=== PATIENT | female | born 1995 | race American Indian/Alaskan Native ===

== ENCOUNTER 2017-12-17 04:08 | Inpatient (IN) | payer BC ==
[2017-12-17] MEDS ORDERED: DUONEB *Not for PRN Use IH ONE (04:51)
[2017-12-17] MEDS ORDERED: NACL 0.9% 1000 ML 1,000 ML IV ONE (04:52)
[2017-12-17 05:39] LABS: Basophils % (Auto) 0.7 % (0.0-1.8); Eosinophils # (Auto) 0.2 K/mm3 (0.0-0.4); Eosinophils % (Auto) 2.3 % (0.0-4.3); Hematocrit 28.5 % (30.3-42.9); Hemoglobin 9.1 gm/dl (10.1-14.3); Lymphocytes # (Auto) 1.5 K/mm3 (1.2-5.4); Lymphocytes % (Auto) 19.4 % (13.4-35.0); Mean Corpuscular HGB Conc 32 % (30-34); Mean Corpuscular Hemoglobin 26 pg (28-32); Mean Corpuscular Volume 83 fl (79-97); Monocytes # (Auto) 0.7 K/mm3 (0.0-0.8); Monocytes % (Auto) 8.5 % (0.0-7.3); Platelet Count 535 K/mm3 (140-440); Red Blood Count 3.44 M/mm3 (3.65-5.03)
[2017-12-17 05:48] LABS: BUN/Creatinine Ratio 6; Blood Urea Nitrogen 3 mg/dL (7-17); Calcium 8.9 mg/dL (8.4-10.2); Hemolysis Index 0
--- NOTE | 2017-12-17 06:14 | XRay Report ---
FINAL REPORT EXAM: XR CHEST 1V AP HISTORY: Shortness of breath TECHNIQUE: A portable upright view the chest was obtained. FINDINGS: The lung bases are not well seen because of suboptimal positioning. The heart is moderately enlarged. The lungs appear congested. There is a tracheostomy tube in good position. The bones soft tissues reveal generalized obesity. IMPRESSION: Cardiomegaly with pulmonary vascular congestion. Limited study of lung bases because of suboptimal positioning of the chest.
--- NOTE | 2017-12-17 07:33 | Emergency Department Report ---
ED Shortness of Breath HPI - General Chief Complaint: Dyspnea/Respdistress Stated Complaint: DIFFICULTY IN BREATHING Time Seen by Provider: 12/17/17 06:18 Source: patient, EMS Mode of arrival: Stretcher Limitations: Physical Limitation - History of Present Illness Initial Comments: 22-year-old female with a past medical history morbid obesity, asthma, hypertension, respiratory therapy will quietly tracheostomy placement presents to the Hospital complaining of feeling like her tracheostomy tube is clogged. Patient was recently admitted to a hospital and mobile [place] for greater than 100 days due to respiratory failure received a tracheostomy tube during this admission. Patient was discharged from the hospital in [place] today and then relocated to [place] area yesterday. Patient sat outside for the first time in months and began to develop shortness of breath and feeling like her tracheostomy tube was clogged. After suctioning in the ED patient reports feeling better. She is supposed to have certain medical supplies delivered yesterday and she does not have any tracheostomy care supplies, suction, or instructions. Patient is a chronic leg edema which is on going. Pt states she uses 28% O2 at home and positive pressure to sleep due to sleep apnea. As per discharge summary from [facility] patient was admitted September 03 until November 15 with acute on chronic hypoxic respiratory failure secondary to acute asthma exacerbation and OHS. She was admitted to inpatient rehabilitation on November 15. She was pending senior living placement however NH placement was unavailable in [place] and patient was discharged on 12/16 into the care of family member to live in [place] and to follow-up with a PCP when in [place]. No previous arrangements for medical care have been arranged prior to arriving in [place]. Discharge medications inculde Duoneb q4h prn, simethicone 80 mg tid prn, pantaoprazole 40mg qd, bisacodyl 10mg recal sup qd prn, tessalon blanc 100 mg po tid prn, tylenol, zofran miralax benadryl, and muprirocin 2% ointment prn. As per d/c summary she was given several forms regarding discharge medication including tracheostomy care - Related Data Home Medications Medication Instructions Recorded Confirmed Last Taken Acetaminophen [Tylenol] 650 mg PO Q4H PRN 12/17/17 12/17/17 Unknown Benzonatate [Tessalon Perle] 100 mg PO TID PRN 12/17/17 12/17/17 Unknown Bisacodyl [Bisac-Evac] 10 mg RC DAILY PRN 12/17/17 12/17/17 Unknown Ipratropium/Albuterol Sulfate 1 ampul IH Q4HR 12/17/17 12/17/17 Unknown [DUONEB *Not for PRN Use*] Mupirocin [Bactroban 2%] 1 applic TP TID 12/17/17 12/17/17 Unknown Ondansetron [Zofran TAB] 4 mg PO Q4HR PRN 12/17/17 12/17/17 Unknown Pantoprazole [Protonix] 40 mg PO QDAY 12/17/17 12/17/17 Unknown Polyethylene Glycol 3350 [Purelax] 17 gm PO QDAY PRN 12/17/17 12/17/17 Unknown Simethicone [Bicarsim] 80 mg PO TID PRN 12/17/17 12/17/17 Unknown diphenhydrAMINE [Benadryl CAP] 50 mg PO Q6H PRN 12/17/17 12/17/17 Unknown Allergies Allergy/AdvReac Type Severity Reaction Status Date / Time No Known Allergies Allergy Verified 12/17/17 04:39 ED Review of Systems ROS: Stated complaint: DIFFICULTY IN BREATHING Other details as noted in HPI Comment: All other systems reviewed and negative ED Past Medical Hx - Past Medical History Previous Medical History?: Yes Hx Hypertension: Yes Hx Asthma: Yes Additional medical history: Repiratory failure - Surgical History Past Surgical History?: Yes Additional Surgical History: Trach - Social History Smoking Status: Never Smoker Substance Use Type: None - Medications Home Medications: Home Medications Medication Instructions Recorded Confirmed Last Taken Type Acetaminophen [Tylenol] 650 mg PO Q4H PRN 12/17/17 12/17/17 Unknown History Benzonatate [Tessalon Perle] 100 mg PO TID PRN 12/17/17 12/17/17 Unknown History Bisacodyl [Bisac-Evac] 10 mg RC DAILY PRN 12/17/17 12/17/17 Unknown History Ipratropium/Albuterol Sulfate 1 ampul IH Q4HR 12/17/17 12/17/17 Unknown History [DUONEB *Not for PRN Use*] Mupirocin [Bactroban 2%] 1 applic TP TID 12/17/17 12/17/17 Unknown History Ondansetron [Zofran TAB] 4 mg PO Q4HR PRN 12/17/17 12/17/17 Unknown History Pantoprazole [Protonix] 40 mg PO QDAY 12/17/17 12/17/17 Unknown History Polyethylene Glycol 3350 [Purelax] 17 gm PO QDAY PRN 12/17/17 12/17/17 Unknown History Simethicone [Bicarsim] 80 mg PO TID PRN 12/17/17 12/17/17 Unknown History diphenhydrAMINE [Benadryl CAP] 50 mg PO Q6H PRN 12/17/17 12/17/17 Unknown History ED Physical Exam - General Limitations: Physical Limitation - Other Other exam information: General: No limitations, patient is alert in no acute distress Head exam: Atraumatic, normocephalic Eyes exam: Normal appearance, pupils equal reactive to light, extraocular movements intact ENT: Moist mucous membrane, normal oropharynx Neck exam: Tracheostomy tube with white secretions Respiratory exam: Clear to auscultation bilateral, no wheezes, rales, crackles Cardiovascular: Mild tachycardia regular rhythm Abdomen: Soft, nondistended, and nontender, with normal bowel sounds, no rebound, or guarding Extremity: b/l leg edema Back: Normal Inspection Neurologic: Alert, oriented x3, cranial nerves intact, no motor or sensory deficit Psychiatric: normal affect, normal mood Skin: Mild skin breakdown along the right anterior neck alongside tracheostomy ED Course Vital Signs 12/17/17 12/17/17 12/17/17 04:12 04:16 04:30 Temperature Pulse Rate 112 H Pulse Rate [ Bilateral Throughout] Respiratory 21 Rate Respiratory Rate [Bilateral Throughout] Blood Pressure 131/82 153/100 Blood Pressure [Right] O2 Sat by Pulse 99 98 96 Oximetry O2 Sat by Pulse Oximetry [ Assessment] 12/17/17 12/17/17 12/17/17 04:39 04:45 04:47 Temperature 99.6 F 99.1 F Pulse Rate 109 H 105 H 109 H Pulse Rate [ Bilateral Throughout] Respiratory 21 25 H 21 Rate Respiratory Rate [Bilateral Throughout] Blood Pressure 131/82 131/82 Blood Pressure 131/82 [Right] O2 Sat by Pulse 100 99 100 Oximetry O2 Sat by Pulse Oximetry [ Assessment] 12/17/17 12/17/17 12/17/17 04:55 05:00 05:10 Temperature Pulse Rate 102 H Pulse Rate [ 89 92 H Bilateral Throughout] Respiratory 29 H Rate Respiratory 24 25 H Rate [Bilateral Throughout] Blood Pressure 156/109 Blood Pressure [Right] O2 Sat by Pulse 84 Oximetry O2 Sat by Pulse Oximetry [ Assessment] 12/17/17 12/17/17 12/17/17 05:15 05:30 05:45 Temperature Pulse Rate 98 H 104 H 107 H Pulse Rate [ Bilateral Throughout] Respiratory 19 19 26 H Rate Respiratory Rate [Bilateral Throughout] Blood Pressure 156/109 145/87 145/87 Blood Pressure [Right] O2 Sat by Pulse 99 97 99 Oximetry O2 Sat by Pulse Oximetry [ Assessment] 12/17/17 12/17/17 12/17/17 06:01 06:15 06:31 Temperature Pulse Rate Pulse Rate [ Bilateral Throughout] Respiratory Rate Respiratory Rate [Bilateral Throughout] Blood Pressure 145/87 115/67 141/81 Blood Pressure [Right] O2 Sat by Pulse 93 87 Oximetry O2 Sat by Pulse Oximetry [ Assessment] 12/17/17 12/17/17 12/17/17 06:45 07:00 07:15 Temperature Pulse Rate Pulse Rate [ Bilateral Throughout] Respiratory Rate Respiratory Rate [Bilateral Throughout] Blood Pressure 141/81 134/83 134/83 Blood Pressure [Right] O2 Sat by Pulse 94 97 95 Oximetry O2 Sat by Pulse Oximetry [ Assessment] 12/17/17 12/17/17 12/17/17 07:30 08:00 08:31 Temperature Pulse Rate Pulse Rate [ Bilateral Throughout] Respiratory Rate Respiratory Rate [Bilateral Throughout] Blood Pressure 148/74 131/73 135/59 Blood Pressure [Right] O2 Sat by Pulse 91 89 92 Oximetry O2 Sat by Pulse Oximetry [ Assessment] 12/17/17 12/17/17 12/17/17 09:00 09:30 10:01 Temperature Pulse Rate Pulse Rate [ Bilateral Throughout] Respiratory Rate Respiratory Rate [Bilateral Throughout] Blood Pressure 129/50 138/57 123/67 Blood Pressure [Right] O2 Sat by Pulse 92 94 97 Oximetry O2 Sat by Pulse Oximetry [ Assessment] 12/17/17 12/17/17 12/17/17 10:30 11:01 12:27 Temperature Pulse Rate Pulse Rate [ Bilateral Throughout] Respiratory Rate Respiratory Rate [Bilateral Throughout] Blood Pressure 139/72 133/67 Blood Pressure [Right] O2 Sat by Pulse 93 100 Oximetry O2 Sat by Pulse 98 Oximetry [ Assessment] 12/17/17 12:30 Temperature Pulse Rate Pulse Rate [ Bilateral Throughout] Respiratory Rate Respiratory Rate [Bilateral Throughout] Blood Pressure Blood Pressure [Right] O2 Sat by Pulse 98 Oximetry O2 Sat by Pulse Oximetry [ Assessment] - Reevaluation(s) Reevaluation #1: 12/17/17 08:30 am Case management consulted Reevaluation #2: 12/17/17 13:33 Throughout the day case management has been attempting to reach case management at the [facility] as well as arrange for outpatient delivery of patient's tracheostomy supplies today. We are unable to make arrangements at this time there for patient not being safe for discharge until such arrangements can be made. During ED stay patient has required repeated tracheostomy suctioning. ED Medical Decision Making - Lab Data Result diagrams: 12/17/17 05:02 12/17/17 05:02 Lab Results 12/17/17 12/17/17 12/17/17 Range/Units 05:02 05:02 05:02 WBC 7.6 (4.5-11.0) K/mm3 RBC 3.44 L (3.65-5.03) M/mm3 Hgb 9.1 L (10.1-14.3) gm/dl Hct 28.5 L (30.3-42.9) % MCV 83 (79-97) fl MCH 26 L (28-32) pg MCHC 32 (30-34) % RDW 19.0 H (13.2-15.2) % Plt Count 535 H (140-440) K/mm3 Lymph % (Auto) 19.4 (13.4-35.0) % [place] % (Auto) 8.5 H (0.0-7.3) % Eos % (Auto) 2.3 (0.0-4.3) % Baso % (Auto) 0.7 (0.0-1.8) % Lymph # 1.5 (1.2-5.4) K/mm3 [place] # 0.7 (0.0-0.8) K/mm3 Eos # 0.2 (0.0-0.4) K/mm3 Baso # 0.0 (0.0-0.1) K/mm3 Seg Neutrophils % 69.1 (40.0-70.0) % Seg Neutrophils # 5.3 (1.8-7.7) K/mm3 Sodium 143 (137-145) mmol/L Potassium 3.8 (3.6-5.0) mmol/L Chloride 98.7 (98-107) mmol/L Carbon Dioxide 32 H (22-30) mmol/L Anion Gap 16 mmol/L BUN 3 L (7-17) mg/dL Creatinine 0.5 L (0.7-1.2) mg/dL Estimated GFR > 60 ml/min BUN/Creatinine Ratio 6 % Glucose 119 H (65-100) mg/dL Calcium 8.9 (8.4-10.2) mg/dL NT-Pro-B Natriuret Pep (0-450) pg/mL HCG, Qual Negative (Negative) 12/17/17 Range/Units 05:02 WBC (4.5-11.0) K/mm3 RBC (3.65-5.03) M/mm3 Hgb (10.1-14.3) gm/dl Hct (30.3-42.9) % MCV (79-97) fl MCH (28-32) pg MCHC (30-34) % RDW (13.2-15.2) % Plt Count (140-440) K/mm3 Lymph % (Auto) (13.4-35.0) % [place] % (Auto) (0.0-7.3) % Eos % (Auto) (0.0-4.3) % Baso % (Auto) (0.0-1.8) % Lymph # (1.2-5.4) K/mm3 [place] # (0.0-0.8) K/mm3 Eos # (0.0-0.4) K/mm3 Baso # (0.0-0.1) K/mm3 Seg Neutrophils % (40.0-70.0) % Seg Neutrophils # (1.8-7.7) K/mm3 Sodium (137-145) mmol/L Potassium (3.6-5.0) mmol/L Chloride (98-107) mmol/L Carbon Dioxide (22-30) mmol/L Anion Gap mmol/L BUN (7-17) mg/dL Creatinine (0.7-1.2) mg/dL Estimated GFR ml/min BUN/Creatinine Ratio % Glucose (65-100) mg/dL Calcium (8.4-10.2) mg/dL NT-Pro-B Natriuret Pep 163.1 (0-450) pg/mL HCG, Qual (Negative) - EKG Data -: EKG Interpreted by Me EKG shows normal: sinus rhythm Rate: tachycardia - Differential Diagnosis pneumonia, trach infection, trach clogged Critical Care Time: No Critical care attestation.: If time is entered above; I have spent that time in minutes in the direct care of this critically ill patient, excluding procedure time. ED Disposition Clinical Impression: Tracheostomy complication, Oxygen dependent, Morbidly obese, Anemia, Asthma Disposition: OP ADMIT IP TO THIS HOSP Is pt being admited?: Yes Condition: Stable Time of Disposition: 13:31
[2017-12-17] MEDS ORDERED: NACL 0.9% 1000 ML 1,000 ML ONE (13:46)
[2017-12-17] MEDS ORDERED: MORPHINE IV PRN (19:01)
[2017-12-17] MEDS ORDERED: REGLAN IV PRN (19:01)
[2017-12-17] MEDS ORDERED: ZOFRAN IV PRN ×2 (19:01→19:04)
[2017-12-17] MEDS ORDERED: PHENERGAN PR PRN (19:01)
[2017-12-17] MEDS ORDERED: PERCOCET 5/325 PO PRN (19:01)
[2017-12-17] MEDS ORDERED: SODIUM CHLORIDE FLUSH SYRINGE 10 ML IV PRN (19:01)
[2017-12-17] MEDS ORDERED: TYLENOL PO PRN ×2 (19:01→19:04)
[2017-12-17] MEDS ORDERED: DUONEB *Not for PRN Use IH (19:04)
[2017-12-17] MEDS ORDERED: PROVENTIL IH PRN (19:19)
--- NOTE | 2017-12-17 19:40 | History and Physical Report ---
History of Present Illness Date of examination: 12/17/17 Date of admission: 12/17/17 15:25 Medications and Allergies Allergies Allergy/AdvReac Type Severity Reaction Status Date / Time No Known Allergies Allergy Verified 12/17/17 04:39 Home Medications Medication Instructions Recorded Confirmed Last Taken Type Acetaminophen [Tylenol] 650 mg PO Q4H PRN 12/17/17 12/17/17 Unknown History Benzonatate [Tessalon Perle] 100 mg PO TID PRN 12/17/17 12/17/17 Unknown History Bisacodyl [Bisac-Evac] 10 mg RC DAILY PRN 12/17/17 12/17/17 Unknown History Ipratropium/Albuterol Sulfate 1 ampul IH Q4HR 12/17/17 12/17/17 Unknown History [DUONEB *Not for PRN Use*] Mupirocin [Bactroban 2%] 1 applic TP TID 12/17/17 12/17/17 Unknown History Ondansetron [Zofran TAB] 4 mg PO Q4HR PRN 12/17/17 12/17/17 Unknown History Pantoprazole [Protonix] 40 mg PO QDAY 12/17/17 12/17/17 Unknown History Polyethylene Glycol 3350 [Purelax] 17 gm PO QDAY PRN 12/17/17 12/17/17 Unknown History Simethicone [Bicarsim] 80 mg PO TID PRN 12/17/17 12/17/17 Unknown History diphenhydrAMINE [Benadryl CAP] 50 mg PO Q6H PRN 12/17/17 12/17/17 Unknown History Exam - Constitutional Vitals: Temp Pulse Resp BP Pulse Ox 98.0 F 107 H 26 H 137/77 91 12/17/17 16:02 12/17/17 05:45 12/17/17 05:45 12/17/17 14:01 12/17/17 14:01 Results - Labs CBC & Chem 7: 12/17/17 05:02 12/17/17 05:02 Labs: Laboratory Last Values WBC 7.6 K/mm3 (4.5-11.0) 12/17/17 05:02 RBC 3.44 M/mm3 (3.65-5.03) L 12/17/17 05:02 Hgb 9.1 gm/dl (10.1-14.3) L 12/17/17 05:02 Hct 28.5 % (30.3-42.9) L 12/17/17 05:02 MCV 83 fl (79-97) 12/17/17 05:02 MCH 26 pg (28-32) L 12/17/17 05:02 MCHC 32 % (30-34) 12/17/17 05:02 RDW 19.0 % (13.2-15.2) H 12/17/17 05:02 Plt Count 535 K/mm3 (140-440) H 12/17/17 05:02 Lymph % (Auto) 19.4 % (13.4-35.0) 12/17/17 05:02 [place] % (Auto) 8.5 % (0.0-7.3) H 12/17/17 05:02 Eos % (Auto) 2.3 % (0.0-4.3) 12/17/17 05:02 Baso % (Auto) 0.7 % (0.0-1.8) 12/17/17 05:02 Lymph # 1.5 K/mm3 (1.2-5.4) 12/17/17 05:02 [place] # 0.7 K/mm3 (0.0-0.8) 12/17/17 05:02 Eos # 0.2 K/mm3 (0.0-0.4) 12/17/17 05:02 Baso # 0.0 K/mm3 (0.0-0.1) 12/17/17 05:02 Seg Neutrophils % 69.1 % (40.0-70.0) 12/17/17 05:02 Seg Neutrophils # 5.3 K/mm3 (1.8-7.7) 12/17/17 05:02 Sodium 143 mmol/L (137-145) 12/17/17 05:02 Potassium 3.8 mmol/L (3.6-5.0) 12/17/17 05:02 Chloride 98.7 mmol/L (98-107) 12/17/17 05:02 Carbon Dioxide 32 mmol/L (22-30) H 12/17/17 05:02 Anion Gap 16 mmol/L 12/17/17 05:02 BUN 3 mg/dL (7-17) L 12/17/17 05:02 Creatinine 0.5 mg/dL (0.7-1.2) L 12/17/17 05:02 Estimated GFR > 60 ml/min 12/17/17 05:02 BUN/Creatinine Ratio 6 % 12/17/17 05:02 Glucose 119 mg/dL (65-100) H 12/17/17 05:02 Calcium 8.9 mg/dL (8.4-10.2) 12/17/17 05:02 NT-Pro-B Natriuret Pep 163.1 pg/mL (0-450) 12/17/17 05:02 HCG, Qual Negative (Negative) 12/17/17 05:02
[2017-12-17] MEDS: DUONEB *Not for PRN Use IH SCH (19:51)
[2017-12-17] MEDS: LEVAQUIN 750MG/150ML 750 MG/150 ML BAG IV SCH (21:09)
[2017-12-17] MEDS: SODIUM CHLORIDE FLUSH SYRINGE 10 ML IV SCH (22:45)
[2017-12-17] MEDS: PEPCID PO SCH (22:45)
--- NOTE | 2017-12-18 01:16 | Event Note ---
Date: 12/17/17 See dictated H/p in the reports Acute Resp failure NATACHA Pickwickian syndrome S/p Trach Morbid obesity Recent discharge from [facility] 24 hours ago
--- NOTE | 2017-12-18 02:03 | History and Physical Report ---
CHIEF COMPLAINT: Respiratory distress and shortness of breath for 1 day. HISTORY OF PRESENT ILLNESS: The patient is a 22-year-old female with morbid obesity, hypoventilation syndrome secondary to Pickwickian, recent trach and prolonged stay in the hospital in [place], was discharged yesterday. The patient was supposed to have a hospital bed and home oxygen and nebulizer treatments at home. The patient's hospital bed and all did not arrive at home. The patient became more short of breath and started having tracheal secretions, which could not be suctioned. No fever, no chills. Increasing secretions in the tracheal region causing tracheal obstruction and hypoxia. No fever. The patient was admitted on 09/03/2017 in [facility] until 11/15/2017 with acute on chronic hypoxic failure. Then, again, she was admitted to inpatient rehabilitation on 11/15/2017. She was supposed to be discharged home with a hospital bed at home and home oxygen and nebulizer treatments, which have not materialized. The patient continues to be in respiratory distress. PAST MEDICAL HISTORY: Significant for hypertension, hypoventilation syndrome, morbid obesity, chronic respiratory failure, on home oxygen. PAST SURGICAL HISTORY: Trach. FAMILY HISTORY: Hypertension. SOCIAL HISTORY: Does not smoke. No alcohol. Increased calorie intake. REVIEW OF SYSTEMS: Significant for tracheal secretions with shortness of breath, cough productive of mucoid sputum. No fever. No chills. A 14-point review of systems done. The patient is morbidly obese. PHYSICAL EXAMINATION: GENERAL: Young female lying in bed, morbidly obese, should be weighing around 550-600 pounds. VITAL SIGNS: Blood pressure is 149/99 and 137/77, temperature is 99.4, pulse is 88, respirations are 18, initial sats were low around 84%. HEENT: Unremarkable. Pupils equal and reactive. NECK: Supple, no lymphadenopathy, no thyromegaly. LUNGS: Scattered rhonchi bilaterally. CARDIOVASCULAR: S1, S2 heard. No gallop, no murmur, no rub. Apical impulse in the left fifth intercostal space and midclavicular line. ABDOMEN: Soft and benign. No hepatosplenomegaly. No guarding, no rigidity. Hernial orifices are normal. EXTREMITIES: No pedal edema. CENTRAL NERVOUS SYSTEM: Alert and oriented x 4. LABORATORY DATA: Significant for white count of 7600, H and H is 9.1 and 28.5, platelet count is 535,000. Electrolytes are normal. BUN and creatinine is 3 and 0.5, glucose is 119. A1c is 5.3. RADIOLOGICAL DATA: Chest x-ray shows cardiomegaly with pulmonary vascular congestion. Limited history of lung bases because of suboptimal positioning of the chest. ASSESSMENT AND PLAN: 1. Acute respiratory failure secondary to tracheal secretions and causing upper airway obstruction and hypoxia. The patient needs frequent tracheal suctioning. Also, IV antibiotics initiated. 2. Hypoventilation syndrome. The patient to get DuoNeb and respiratory support. IV Solu-Medrol for the time being. 3. Morbid obesity. The patient counseled. 4. Anemia, chronic, secondary to possible iron deficiency. Iron levels ordered. Poor IV access, port placement was ordered. Vascular Surgery consulted. Discussed with Vascular Surgery, ____. 4. Deep venous thrombosis prophylaxis, Lovenox 40 mg subcutaneous daily. 5. Discharge planning issues. Case management to arrange for a hospital bed and a nebulizer machine and oxygen. The patient already has oxygen at home. Treat symptomatically for now. In summary, the patient has acute respiratory failure, hypoventilation syndrome and morbid obesity. JOB# [id number] CORBIN/MARCY
[2017-12-18 02:44] LABS: % Iron Saturation 5.13 %
[2017-12-18] MEDS: DUONEB *Not for PRN Use IH SCH ×4 (08:33→20:28)
--- NOTE | 2017-12-18 08:47 | Progress Note ---
Assessment and Plan Assessment and plan: 22F w morbid obesity, obesity hypoventilation; recent trach, long hospital stay in [place] x3 months for acute hypoxic respiratory failure, was dc yesterday but his supplies names.y, hospital bed, home o2 and nebulizer were not delivered ; he pw sob, increased tracheal secretion which were difficult to suction; CXR image reviewed; pulm congestion PMH; htn, obesity hypoventilation, chronic hypoxic respiratory failure Acute respiratory failure with hypoxia; pulmonary congestion;give oxygen supplement CHF? obtain echo, start diuresis Tracheal secreations; concern for infection, culture tracheal aspirate, hold off on abx for now Obesity hypoventilation; pulm consult, will need NIV prior to dc Morbid obesity; lifestyle modification Anemia of chronic disease and iron deficiency; stable CM to obtain home services and equipment for patient, NIV, oxygen, hospital bed and nebulizer History Interval history: Review of systems Constitutional: No fevers, no malaise, no joint pains CVS: No chest pain, no orthopnea, no dyspnea on exertion, no pedal edema GI: No abdominal pain, no diarrhea, no vomiting, no constipation Respiratory: No shortness of breath, no wheezing, no coughing Hospitalist Physical - Physical exam Narrative exam: General.: Appears well, no distress, nontoxic HEENT: Moist mucous membranes, extraocular muscles intact, no lymphadenopathy Neck: supple Cardiac: S1-S2 heard Lungs: clear to auscultation bilaterally Abdomen: soft , nontender, nondistended, bowel sounds positive Extremities: no edema clubbing or cyanosis Skin: no rash or lesions Neurologic: no gross focal deficits Psych: appropriate behavior, appropriate mood, corporative, judgment intact - Constitutional Vitals: Temp Pulse Resp BP Pulse Ox 99.4 F 98 H 18 149/99 98 12/17/17 23:12 12/18/17 08:34 12/18/17 08:34 12/17/17 23:12 12/18/17 08:34 Results - Labs CBC & Chem 7: 12/17/17 05:02 12/17/17 05:02 Labs: Laboratory Last Values WBC 7.6 K/mm3 (4.5-11.0) 12/17/17 05:02 RBC 3.44 M/mm3 (3.65-5.03) L 12/17/17 05:02 Hgb 9.1 gm/dl (10.1-14.3) L 12/17/17 05:02 Hct 28.5 % (30.3-42.9) L 12/17/17 05:02 MCV 83 fl (79-97) 12/17/17 05:02 MCH 26 pg (28-32) L 12/17/17 05:02 MCHC 32 % (30-34) 12/17/17 05:02 RDW 19.0 % (13.2-15.2) H 12/17/17 05:02 Plt Count 535 K/mm3 (140-440) H 12/17/17 05:02 Lymph % (Auto) 19.4 % (13.4-35.0) 12/17/17 05:02 [place] % (Auto) 8.5 % (0.0-7.3) H 12/17/17 05:02 Eos % (Auto) 2.3 % (0.0-4.3) 12/17/17 05:02 Baso % (Auto) 0.7 % (0.0-1.8) 12/17/17 05:02 Lymph # 1.5 K/mm3 (1.2-5.4) 12/17/17 05:02 [place] # 0.7 K/mm3 (0.0-0.8) 12/17/17 05:02 Eos # 0.2 K/mm3 (0.0-0.4) 12/17/17 05:02 Baso # 0.0 K/mm3 (0.0-0.1) 12/17/17 05:02 Seg Neutrophils % 69.1 % (40.0-70.0) 12/17/17 05:02 Seg Neutrophils # 5.3 K/mm3 (1.8-7.7) 12/17/17 05:02 Sodium 143 mmol/L (137-145) 12/17/17 05:02 Potassium 3.8 mmol/L (3.6-5.0) 12/17/17 05:02 Chloride 98.7 mmol/L (98-107) 12/17/17 05:02 Carbon Dioxide 32 mmol/L (22-30) H 12/17/17 05:02 Anion Gap 16 mmol/L 12/17/17 05:02 BUN 3 mg/dL (7-17) L 12/17/17 05:02 Creatinine 0.5 mg/dL (0.7-1.2) L 12/17/17 05:02 Estimated GFR > 60 ml/min 12/17/17 05:02 BUN/Creatinine Ratio 6 % 12/17/17 05:02 Glucose 119 mg/dL (65-100) H 12/17/17 05:02 Hemoglobin A1c 5.3 % (4-6) 12/17/17 21:47 Calcium 8.9 mg/dL (8.4-10.2) 12/17/17 05:02 Iron 18 ug/dL (37-170) L 12/18/17 01:48 TIBC 351 mcg/dL (250-450) 12/18/17 01:48 % Saturation 5.13 % 12/18/17 01:48 Transferrin 306 mg/dl (192-382) 12/18/17 01:48 NT-Pro-B Natriuret Pep 163.1 pg/mL (0-450) 12/17/17 05:02 HCG, Qual Negative (Negative) 12/17/17 05:02
[2017-12-18 09:08] LABS: Mean Corpuscular HGB Conc 30 % (30-34); Mean Corpuscular Volume 83 fl (79-97); Platelet Count 581 K/mm3 (140-440); Red Cell Distribution Width 18.9 % (13.2-15.2)
[2017-12-18 09:13] LABS: Hematocrit 31.6 % (30.3-42.9); Hemoglobin 9.5 gm/dl (10.1-14.3); Mean Corpuscular Hemoglobin 25 pg (28-32)
[2017-12-18 10:10] LABS: Basophils % (Manual) 0 % (0.0-1.8); Eosinophils % (Manual) 0 % (0.0-4.3); Total Cells Counted 100
[2017-12-18 10:11] LABS: Anisocytosis 1+; Burr Cells 1+; Ovalocytes 1+; Platelet Estimate Appears Increased; Stomatocytes 1+; Tear Drop Cells Rare
[2017-12-18] MEDS: LEVAQUIN 750MG/150ML 750 MG/150 ML BAG IV SCH (10:27)
[2017-12-18] MEDS: PEPCID PO SCH ×2 (10:27→22:40)
[2017-12-18] MEDS: SODIUM CHLORIDE FLUSH SYRINGE 10 ML IV SCH (10:30)
--- NOTE | 2017-12-18 11:22 | Consultation ---
History of Present Illness - Reason for Consult Consult date: 12/18/17 port placement - History of Present Illness Patient with a history of morbid obesity and respiratory distress to was recently released from hospital in [place]. Her home medical equipment did not materialize and the patient presented here in respiratory distress. She currently has a tracheostomy tube in place. She does have an IV Past History Past Surgical History: Other (trach) Social history: no significant social history, lives with family Family history: no significant family history Medications and Allergies Allergies Allergy/AdvReac Type Severity Reaction Status Date / Time No Known Allergies Allergy Verified 12/17/17 04:39 Home Medications Medication Instructions Recorded Confirmed Last Taken Type Acetaminophen [Tylenol] 650 mg PO Q4H PRN 12/17/17 12/17/17 Unknown History Benzonatate [Tessalon Perle] 100 mg PO TID PRN 12/17/17 12/17/17 Unknown History Bisacodyl [Bisac-Evac] 10 mg RC DAILY PRN 12/17/17 12/17/17 Unknown History Ipratropium/Albuterol Sulfate 1 ampul IH Q4HR 12/17/17 12/17/17 Unknown History [DUONEB *Not for PRN Use*] Mupirocin [Bactroban 2%] 1 applic TP TID 12/17/17 12/17/17 Unknown History Ondansetron [Zofran TAB] 4 mg PO Q4HR PRN 12/17/17 12/17/17 Unknown History Pantoprazole [Protonix] 40 mg PO QDAY 12/17/17 12/17/17 Unknown History Polyethylene Glycol 3350 [Purelax] 17 gm PO QDAY PRN 12/17/17 12/17/17 Unknown History Simethicone [Bicarsim] 80 mg PO TID PRN 12/17/17 12/17/17 Unknown History diphenhydrAMINE [Benadryl CAP] 50 mg PO Q6H PRN 12/17/17 12/17/17 Unknown History Active Meds: Active Medications Acetaminophen (Tylenol) 650 mg PO Q4H PRN PRN Reason: Pain MILD(1-3)/Fever >100.5/SIERRA Albuterol (Proventil) 2.5 mg IH Q4HRT PRN PRN Reason: Shortness Of Breath Albuterol/Ipratropium (Duoneb *Not For Prn Use*) 1 ampul IH QIDRT [facility] Last Admin: 12/18/17 08:33 Dose: 1 ampul Famotidine (Pepcid) 20 mg PO BID [facility] Last Admin: 12/18/17 10:27 Dose: 20 mg Furosemide (Lasix) 40 mg IV Q12HR [facility] Influenza Virus Vaccine Quadrival (Fluarix Quad [id number](36 Mos+) 0.5 ml IM .ONCE ONE Stop: 12/18/17 12:01 Levofloxacin (Levaquin) 750 mg PO DAILY [facility] Stop: 12/26/17 12:59 Methylprednisolone Sodium Succinate (Solu-Medrol) 40 mg IV Q8HR [facility] Last Admin: 12/18/17 06:02 Dose: 40 mg Metoclopramide HCl (Reglan) 10 mg IV Q6H PRN PRN Reason: Nausea And Vomiting Morphine Sulfate (Morphine) 2 mg IV Q4H PRN PRN Reason: Pain, Moderate (4-6) Last Admin: 12/17/17 23:36 Dose: 2 mg Ondansetron HCl (Zofran) 4 mg IV Q8H PRN PRN Reason: Nausea And Vomiting Ondansetron HCl (Zofran) 4 mg IV Q3H PRN PRN Reason: Nausea And Vomiting Oxycodone/Acetaminophen (Percocet 5/325) 1 tab PO Q6H PRN PRN Reason: Pain, Moderate (4-6) Pneumococcal Polyvalent Vaccine (Pneumovax 23) 0.5 ml IM .ONCE ONE Stop: 12/18/17 12:01 Promethazine HCl (Phenergan) 25 mg OK Q6H PRN PRN Reason: N/V IF NPO AND NO IV ACCESS Sodium Chloride (Sodium Chloride Flush Syringe 10 Ml) 10 ml IV BID [facility] Last Admin: 12/18/17 10:30 Dose: 10 ml Sodium Chloride (Sodium Chloride Flush Syringe 10 Ml) 10 ml IV PRN PRN PRN Reason: LINE FLUSH Review of Systems All systems: negative Exam - Constitutional Vitals: Temp Pulse Resp BP Pulse Ox 98.1 F 98 H 18 161/62 98 12/18/17 07:34 12/18/17 08:34 12/18/17 08:34 12/18/17 07:34 12/18/17 08:34 General appearance: Present: obese - EENT Eyes: Present: PERRL ENT: hearing intact - Neck Neck: Present: supple, normal ROM - Respiratory Respiratory effort: normal - Extremities Extremity abnormal: edema - Abdominal General gastrointestinal: Present: deferred Female genitourinary: Present: deferred - Rectal Rectal Exam: deferred - Psychiatric Psychiatric: appropriate mood/affect, cooperative Results - Labs CBC & Chem 7: 12/18/17 07:15 12/17/17 05:02 Labs: Abnormal lab results 12/18/17 12/18/17 Range/Units 01:48 07:15 Hgb 9.5 L (10.1-14.3) gm/dl MCH 25 L (28-32) pg RDW 18.9 H (13.2-15.2) % Plt Count 581 H (140-440) K/mm3 Seg Neuts % (Manual) 96.0 H (40.0-70.0) % Lymphocytes % (Manual) 3.0 L (13.4-35.0) % Seg Neutrophils # Man 8.6 H (1.8-7.7) K/mm3 Lymphocytes # (Manual) 0.3 L (1.2-5.4) K/mm3 Iron 18 L (37-170) ug/dL Assessment and Plan The patient is morbidly obese. No acute need for ports time however, following a lengthy discussion with the patient, to somewhat hesitant as well. If the patient long-term IV access we can review this issue. Additionally, the patient is to discuss with Dr. Holley gastric mass options.
[2017-12-18] MEDS ORDERED: PNEUMOVAX 23 IM ONE (12:00)
[2017-12-18] MEDS ORDERED: Fluarix Quad 2017-2018(36 MOS+ IM ONE (12:00)
[2017-12-18 12:12] LABS: Alanine Aminotransferase 9 units/L (7-56); Albumin 3.7 g/dL (3.9-5); BUN/Creatinine Ratio 6; Blood Urea Nitrogen 3 mg/dL (7-17); Calcium 9.3 mg/dL (8.4-10.2); Hemolysis Index 0
[2017-12-18] MEDS: LASIX IV SCH ×2 (18:08→22:00)
[2017-12-19] MEDS: SODIUM CHLORIDE FLUSH SYRINGE 10 ML IV SCH ×2 (01:02→11:27)
[2017-12-19] MEDS: LASIX IV SCH ×2 (06:40→11:16)
[2017-12-19] MEDS: DUONEB *Not for PRN Use IH SCH ×4 (08:32→22:02)
[2017-12-19] MEDS: PEPCID PO SCH (11:16)
[2017-12-19] MEDS: LEVAQUIN PO SCH (11:16)
--- NOTE | 2017-12-19 13:03 | Consultation ---
History of Present Illness Consult date: 12/19/17 Consult reason: congestive heart failure History of present illness: This is a 22 year old female with a history of asthma, morbid obesity, respiratory failure whom is status post tracheostomy. She presents to this hospital complaints of shortness of breath, feeling like her tracheostomy tube is clogged. Patient reports she was just discharged after an extended hospitalization in [place], to live with family here in [place]. Patient reports she was sent to [place] without supplies to suction her tracheostomy and developed shortness of breath shortly after arriving. A cardiac consultation was requested for CHF. Chest x-ray is negative. Patient denies chest pain. She denies palpitations. Patient denies prior cardiac workup. 12 lead ECG is mild sinus tachycardia, rate 114. Past History Past Surgical History: Other (trach) Social history: no significant social history, lives with family Family history: no significant family history Medications and Allergies Allergies Allergy/AdvReac Type Severity Reaction Status Date / Time No Known Allergies Allergy Verified 12/17/17 04:39 Home Medications Medication Instructions Recorded Confirmed Last Taken Type Acetaminophen [Tylenol] 650 mg PO Q4H PRN 12/17/17 12/17/17 Unknown History Benzonatate [Tessalon Perle] 100 mg PO TID PRN 12/17/17 12/17/17 Unknown History Bisacodyl [Bisac-Evac] 10 mg RC DAILY PRN 12/17/17 12/17/17 Unknown History Ipratropium/Albuterol Sulfate 1 ampul IH Q4HR 12/17/17 12/17/17 Unknown History [DUONEB *Not for PRN Use*] Mupirocin [Bactroban 2%] 1 applic TP TID 12/17/17 12/17/17 Unknown History Ondansetron [Zofran TAB] 4 mg PO Q4HR PRN 12/17/17 12/17/17 Unknown History Pantoprazole [Protonix] 40 mg PO QDAY 12/17/17 12/17/17 Unknown History Polyethylene Glycol 3350 [Purelax] 17 gm PO QDAY PRN 12/17/17 12/17/17 Unknown History Simethicone [Bicarsim] 80 mg PO TID PRN 12/17/17 12/17/17 Unknown History diphenhydrAMINE [Benadryl CAP] 50 mg PO Q6H PRN 12/17/17 12/17/17 Unknown History Active Meds: Active Medications Acetaminophen (Tylenol) 650 mg PO Q4H PRN PRN Reason: Pain MILD(1-3)/Fever >100.5/SIERRA Albuterol (Proventil) 2.5 mg IH Q4HRT PRN PRN Reason: Shortness Of Breath Albuterol/Ipratropium (Duoneb *Not For Prn Use*) 1 ampul IH QIDRT [facility] Last Admin: 12/19/17 08:32 Dose: 1 ampul Famotidine (Pepcid) 20 mg PO BID [facility] Last Admin: 12/19/17 11:16 Dose: 20 mg Furosemide (Lasix) 40 mg IV Q12HR [facility] Last Admin: 12/19/17 11:16 Dose: 40 mg Levofloxacin (Levaquin) 750 mg PO DAILY [facility] Stop: 12/26/17 12:59 Last Admin: 12/19/17 11:16 Dose: 750 mg Methylprednisolone Sodium Succinate (Solu-Medrol) 40 mg IV Q8HR [facility] Last Admin: 12/19/17 06:40 Dose: 40 mg Metoclopramide HCl (Reglan) 10 mg IV Q6H PRN PRN Reason: Nausea And Vomiting Morphine Sulfate (Morphine) 2 mg IV Q4H PRN PRN Reason: Pain, Moderate (4-6) Last Admin: 12/17/17 23:36 Dose: 2 mg Ondansetron HCl (Zofran) 4 mg IV Q3H PRN PRN Reason: Nausea And Vomiting Oxycodone/Acetaminophen (Percocet 5/325) 1 tab PO Q6H PRN PRN Reason: Pain, Moderate (4-6) Promethazine HCl (Phenergan) 25 mg RI Q6H PRN PRN Reason: N/V IF NPO AND NO IV ACCESS Sodium Chloride (Sodium Chloride Flush Syringe 10 Ml) 10 ml IV BID [facility] Last Admin: 12/19/17 11:27 Dose: 10 ml Sodium Chloride (Sodium Chloride Flush Syringe 10 Ml) 10 ml IV PRN PRN PRN Reason: LINE FLUSH Physical Examination Vital Signs Pulse Ox 99 12/17/17 04:12 Results 12/18/17 07:15 12/18/17 07:15 Assessment and Plan Respiratory failure status post tracheostomy Morbid obesity Hx of Asthma
--- NOTE | 2017-12-19 16:13 | Progress Note ---
Hospitalist Physical - Constitutional Vitals: Temp Pulse Resp BP Pulse Ox 98.2 F 83 20 137/79 98 12/19/17 08:35 12/19/17 08:35 12/19/17 08:35 12/19/17 08:35 12/19/17 08:35 General appearance: Present: obese Results - Labs CBC & Chem 7: 12/18/17 07:15 12/18/17 07:15 Labs: Laboratory Last Values WBC 9.0 K/mm3 (4.5-11.0) 12/18/17 07:15 RBC 3.80 M/mm3 (3.65-5.03) 12/18/17 07:15 Hgb 9.5 gm/dl (10.1-14.3) L 12/18/17 07:15 Hct 31.6 % (30.3-42.9) 12/18/17 07:15 MCV 83 fl (79-97) 12/18/17 07:15 MCH 25 pg (28-32) L 12/18/17 07:15 MCHC 30 % (30-34) 12/18/17 07:15 RDW 18.9 % (13.2-15.2) H 12/18/17 07:15 Plt Count 581 K/mm3 (140-440) H 12/18/17 07:15 Lymph % (Auto) 19.4 % (13.4-35.0) 12/17/17 05:02 [place] % (Auto) 8.5 % (0.0-7.3) H 12/17/17 05:02 Eos % (Auto) 2.3 % (0.0-4.3) 12/17/17 05:02 Baso % (Auto) 0.7 % (0.0-1.8) 12/17/17 05:02 Lymph # 1.5 K/mm3 (1.2-5.4) 12/17/17 05:02 [place] # 0.7 K/mm3 (0.0-0.8) 12/17/17 05:02 Eos # 0.2 K/mm3 (0.0-0.4) 12/17/17 05:02 Baso # 0.0 K/mm3 (0.0-0.1) 12/17/17 05:02 Add Manual Diff Complete 12/18/17 07:15 Total Counted 100 12/18/17 07:15 Seg Neutrophils % 69.1 % (40.0-70.0) 12/17/17 05:02 Seg Neuts % (Manual) 96.0 % (40.0-70.0) H 12/18/17 07:15 Band Neutrophils % 0 % 12/18/17 07:15 Lymphocytes % (Manual) 3.0 % (13.4-35.0) L 12/18/17 07:15 Reactive Lymphs % (Man) 0 % 12/18/17 07:15 Monocytes % (Manual) 1.0 % (0.0-7.3) 12/18/17 07:15 Eosinophils % (Manual) 0 % (0.0-4.3) 12/18/17 07:15 Basophils % (Manual) 0 % (0.0-1.8) 12/18/17 07:15 Metamyelocytes % 0 % 12/18/17 07:15 Myelocytes % 0 % 12/18/17 07:15 Promyelocytes % 0 % 12/18/17 07:15 Blast Cells % 0 % 12/18/17 07:15 Nucleated RBC % Not Reportable 12/18/17 07:15 Seg Neutrophils # 5.3 K/mm3 (1.8-7.7) 12/17/17 05:02 Seg Neutrophils # Man 8.6 K/mm3 (1.8-7.7) H 12/18/17 07:15 Band Neutrophils # 0.0 K/mm3 12/18/17 07:15 Lymphocytes # (Manual) 0.3 K/mm3 (1.2-5.4) L 12/18/17 07:15 Abs React Lymphs (Man) 0.0 K/mm3 12/18/17 07:15 Monocytes # (Manual) 0.1 K/mm3 (0.0-0.8) 12/18/17 07:15 Eosinophils # (Manual) 0.0 K/mm3 (0.0-0.4) 12/18/17 07:15 Basophils # (Manual) 0.0 K/mm3 (0.0-0.1) 12/18/17 07:15 Metamyelocytes # 0.0 K/mm3 12/18/17 07:15 Myelocytes # 0.0 K/mm3 12/18/17 07:15 Promyelocytes # 0.0 K/mm3 12/18/17 07:15 Blast Cells # 0.0 K/mm3 12/18/17 07:15 WBC Morphology Not Reportable 12/18/17 07:15 Hypersegmented Neuts Not Reportable 12/18/17 07:15 Hyposegmented Neuts Not Reportable 12/18/17 07:15 Hypogranular Neuts Not Reportable 12/18/17 07:15 Smudge Cells Not Reportable 12/18/17 07:15 Toxic Granulation Not Reportable 12/18/17 07:15 Toxic Vacuolation Not Reportable 12/18/17 07:15 Dohle Bodies Not Reportable 12/18/17 07:15 Pelger-Huet Anomaly Not Reportable 12/18/17 07:15 Ying Rods Not Reportable 12/18/17 07:15 Platelet Estimate Appears increased 12/18/17 07:15 Clumped Platelets Not Reportable 12/18/17 07:15 Plt Clumps, EDTA Not Reportable 12/18/17 07:15 Large Platelets Not Reportable 12/18/17 07:15 Giant Platelets Not Reportable 12/18/17 07:15 Platelet Satelliting Not Reportable 12/18/17 07:15 Plt Morphology Comment Not Reportable 12/18/17 07:15 RBC Morphology Not Reportable 12/18/17 07:15 Dimorphic RBCs Not Reportable 12/18/17 07:15 Polychromasia Not Reportable 12/18/17 07:15 Hypochromasia Not Reportable 12/18/17 07:15 Poikilocytosis Not Reportable 12/18/17 07:15 Anisocytosis 1+ 12/18/17 07:15 Microcytosis Few 12/18/17 07:15 Macrocytosis Not Reportable 12/18/17 07:15 Spherocytes Not Reportable 12/18/17 07:15 Pappenheimer Bodies Not Reportable 12/18/17 07:15 Sickle Cells Not Reportable 12/18/17 07:15 Target Cells Not Reportable 12/18/17 07:15 Tear Drop Cells Rare 12/18/17 07:15 Ovalocytes 1+ 12/18/17 07:15 Stomatocytes 1+ 12/18/17 07:15 Helmet Cells Not Reportable 12/18/17 07:15 Huff-Rathbun Bodies Not Reportable 12/18/17 07:15 Menard Rings Not Reportable 12/18/17 07:15 Shakira Cells 1+ 12/18/17 07:15 Bite Cells Not Reportable 12/18/17 07:15 Crenated Cell Not Reportable 12/18/17 07:15 Elliptocytes 1+ 12/18/17 07:15 Acanthocytes (Spur) Not Reportable 12/18/17 07:15 Rouleaux Not Reportable 12/18/17 07:15 Hemoglobin C Crystals Not Reportable 12/18/17 07:15 Schistocytes Not Reportable 12/18/17 07:15 Malaria parasites Not Reportable 12/18/17 07:15 Redd Bodies Not Reportable 12/18/17 07:15 Hem Pathologist Commnt No 12/18/17 07:15 Sodium 140 mmol/L (137-145) 12/18/17 07:15 Potassium 4.3 mmol/L (3.6-5.0) 12/18/17 07:15 Chloride 95.9 mmol/L (98-107) L 12/18/17 07:15 Carbon Dioxide 30 mmol/L (22-30) 12/18/17 07:15 Anion Gap 18 mmol/L 12/18/17 07:15 BUN 3 mg/dL (7-17) L 12/18/17 07:15 Creatinine 0.5 mg/dL (0.7-1.2) L 12/18/17 07:15 Estimated GFR > 60 ml/min 12/18/17 07:15 BUN/Creatinine Ratio 6 % 12/18/17 07:15 Glucose 94 mg/dL (65-100) 12/18/17 07:15 Hemoglobin A1c 5.3 % (4-6) 12/17/17 21:47 Calcium 9.3 mg/dL (8.4-10.2) 12/18/17 07:15 Iron 18 ug/dL (37-170) L 12/18/17 01:48 TIBC 351 mcg/dL (250-450) 12/18/17 01:48 % Saturation 5.13 % 12/18/17 01:48 Transferrin 306 mg/dl (192-382) 12/18/17 01:48 Total Bilirubin 0.50 mg/dL (0.1-1.2) 12/18/17 07:15 AST 17 units/L (5-40) 12/18/17 07:15 ALT 9 units/L (7-56) 12/18/17 07:15 Alkaline Phosphatase 45 units/L (35-129) 12/18/17 07:15 NT-Pro-B Natriuret Pep 163.1 pg/mL (0-450) 12/17/17 05:02 Total Protein 7.2 g/dL (6.3-8.2) 12/18/17 07:15 Albumin 3.7 g/dL (3.9-5) L 12/18/17 07:15 Albumin/Globulin Ratio 1.1 % 12/18/17 07:15 HCG, Qual Negative (Negative) 12/17/17 05:02
[2017-12-20] MEDS: LASIX IV SCH ×2 (02:01→10:20)
[2017-12-20] MEDS: PEPCID PO SCH ×2 (02:01→10:20)
[2017-12-20] MEDS: SODIUM CHLORIDE FLUSH SYRINGE 10 ML IV SCH ×2 (02:02→10:20)
[2017-12-20] MEDS: DUONEB *Not for PRN Use IH SCH ×3 (09:07→16:36)
[2017-12-20] MEDS: LEVAQUIN PO SCH (10:20)
--- NOTE | 2017-12-20 14:53 | Discharge Summary ---
Providers - Providers Date of Admission: 12/17/17 15:25 Attending physician: ALISE ORTEGA MD 12/17/17 07:06 Consult to Case Management [CONS] Urgent Services Needed at Discharge: Home Health Services DME Equipment Clerical Associate Physical Therapy Occupational Therapy Notified:: Winter Additional Physician Instructions: Needs Hospital bed and suctioning equipment for her Trach 12/17/17 22:13 Consult to Wound/ET Nurse [CONS] Stat Reason For Exam: Breakdown around neck, soreness per patient 12/18/17 02:29 Consult to Physician [CONS] Routine Comment: Consulting Provider: STEPHAN HERRERA Physician Instructions: Reason For Exam: port placement 12/18/17 11:10 Consult to Physician [CONS] Routine Comment: Consulting Provider: ANN FONSECA Physician Instructions: Reason For Exam: chf 12/18/17 11:22 Consult to Physician [CONS] Routine Comment: Consulting Provider: DAYNA ZHANG Physician Instructions: Reason For Exam: Morbid obesity - gastric bypass options 12/20/17 13:05 Consult to Case Management [CONS] Routine Services Needed at Discharge: DME Equipment Notified:: Jerri If yes, spoke with:: yes Additional Physician Instructions: Suction machine for a trach with tubing to be delivered to [facility] 12/20/2017 ROOM 374 Primary care physician: CAKE WASHER Hospitalization Condition: Stable Disposition: DC-01 TO HOME OR SELFCARE Time spent for discharge: 33 minutes Core Measure Documentation - Palliative Care Palliative Care/ Comfort Measures: Not Applicable - Core Measures Any of the following diagnoses?: none Exam - Constitutional Vitals: Temp Pulse Resp BP Pulse Ox 98.5 F 55 L 24 145/67 97 12/20/17 08:13 12/20/17 08:13 12/20/17 08:13 12/20/17 08:13 12/20/17 08:13 General appearance: Present: no acute distress, well-nourished - EENT Eyes: Present: PERRL ENT: hearing intact, clear oral mucosa - Neck Neck: Present: supple, normal ROM - Respiratory Respiratory effort: normal Respiratory: bilateral: CTA - Cardiovascular Heart Sounds: Present: S1 & S2. Absent: rub, click - Extremities Extremities: pulses symmetrical, No edema Peripheral Pulses: within normal limits - Abdominal General gastrointestinal: Present: soft, non-tender, non-distended, normal bowel sounds Female genitourinary: Present: normal - Integumentary Integumentary: Present: clear, warm, dry - Musculoskeletal Musculoskeletal: gait normal, strength equal bilaterally - Psychiatric Psychiatric: appropriate mood/affect, intact judgment & insight - Neurologic Neurologic: CNII-XII intact, moves all extremities Plan Follow up with: PRIMARY CARE,MD [Primary Care Provider] - 7 Days Prescriptions: Prednisone [predniSONE 10 mg (6-Day Pack, 21 Tabs)] 10 mg PO .TAPER #1 tab.ds.pk
[2017-12-20 15:57] VITALS: BP 135/86
== END 2017-12-20 19:45 | disposition home or self-care (01) | DRG 205 ==
LOC: ED 04:08 → 3A 15:25
PROVIDERS: ADMIT Internal Medicine; ATTEND Internal Medicine
PROC: 3E0234Z Introduction of Serum, Toxoid and Vaccine into Muscle, Percutaneous Approach (ICD-10-PCS; principal; 2017-12-18)
DX: J95.09 Other tracheostomy complication (principal); J96.21 Acute and chronic respiratory failure with hypoxia; E66.2 Morbid (severe) obesity with alveolar hypoventilation; Z68.45 Body mass index [BMI] 70 or greater, adult; I10 Essential (primary) hypertension; J45.909 Unspecified asthma, uncomplicated; D63.8 Anemia in other chronic diseases classified elsewhere; Y84.8 Other medical procedures as the cause of abnormal reaction of the patient, or of later complication, without mention of misadventure at the time of the procedure; Y82.8 Other medical devices associated with adverse incidents; D64.9 Anemia, unspecified; Z99.81 Dependence on supplemental oxygen; Z71.3 Dietary counseling and surveillance; Z82.49 Family history of ischemic heart disease and other diseases of the circulatory system; Z23 Encounter for immunization
CPT/HCPCS: 36415; 71045; 80048; 80053; 83036; 83550; 83880; 84703; 85007; 85025; 87070; 87076; 87186; 87205; 90686; 90732; 93005; 93010; 93306; 94640; 94760; 96360; J1940; J1956; J2270; J2920; J2930; J7030

== ENCOUNTER 2018-01-02 17:54 | Emergency (ER) | payer BC ==
[2018-01-02] MEDS ORDERED: LEVAQUIN 750MG/150ML 750 MG/150 ML BAG IV ONE (18:24)
[2018-01-02 19:13] LABS: Basophils # (Auto) 0.1 K/mm3 (0.0-0.1); Basophils % (Auto) 0.7 % (0.0-1.8); Eosinophils # (Auto) 0.3 K/mm3 (0.0-0.4); Eosinophils % (Auto) 3.3 % (0.0-4.3); Hemoglobin 9.6 gm/dl (10.1-14.3); Lymphocytes # (Auto) 1.7 K/mm3 (1.2-5.4); Lymphocytes % (Auto) 19.9 % (13.4-35.0); Mean Corpuscular HGB Conc 31 % (30-34); Mean Corpuscular Hemoglobin 25 pg (28-32); Mean Corpuscular Volume 82 fl (79-97); Monocytes # (Auto) 0.7 K/mm3 (0.0-0.8); Monocytes % (Auto) 8.4 % (0.0-7.3); Platelet Count 360 K/mm3 (140-440); Red Blood Count 3.77 M/mm3 (3.65-5.03)
[2018-01-02 19:45] LABS: BUN/Creatinine Ratio 10; Blood Urea Nitrogen 5 mg/dL (7-17); Calcium 8.6 mg/dL (8.4-10.2); Hemolysis Index 140
--- NOTE | 2018-01-02 20:48 | Emergency Department Report ---
HPI - General Chief Complaint: Upper Respiratory Infection Time Seen by Provider: 01/02/18 18:22 - HPI HPI: 22-year-old female presents to the emergency department with concern for an infection of her tracheostomy. The patient had some type of respiratory arrest and/or event in August of this year that led to her being in the hospital in [facility] for over 3 months, until December 16. During that time she required a tracheostomy to be placed. The patient was moving up here to [place] and came here on December 17. She did not have the medical equipment necessary at that time and was having some tracheostomy problems and therefore came to [facility] on December 17. She spent 3 days here before being discharged home. The patient says that she was called today in reference to the results of her tracheostomy sputum culture and was told that she had a positive infection. There is a note saying that the hospitalist service contacted or attempted to contact her with these results on December [address] [facility] since that was sensitive to the infection. The patient says that she was never contacted until today. She still says that she has some sputum that is green in color and/or discharge from the tracheostomy site and tube. She denies any fever, shortness of breath, dysphagia. Since she just moved to the [place] area she does not have a primary care physician, ENT or strategic account director. ED Past Medical Hx - Past Medical History Hx Hypertension: Yes Hx Asthma: Yes Additional medical history: Repiratory failure - Surgical History Additional Surgical History: Trach - Social History Smoking Status: Never Smoker Substance Use Type: None - Medications Home Medications: Home Medications Medication Instructions Recorded Confirmed Last Taken Type Acetaminophen [Acetaminophen TAB] 650 mg PO Q4H PRN 12/17/17 12/17/17 Unknown History Benzonatate [Tessalon Perle] 100 mg PO TID PRN 12/17/17 12/17/17 Unknown History Bisacodyl [Bisac-Evac] 10 mg RC DAILY PRN 12/17/17 12/17/17 Unknown History Ipratropium/Albuterol Sulfate 1 ampul IH Q4HR 12/17/17 12/17/17 Unknown History [DUONEB *Not for PRN Use*] Mupirocin [Bactroban 2% OINT] 1 applic TP TID 12/17/17 12/17/17 Unknown History Ondansetron [Zofran TAB] 4 mg PO Q4HR PRN 12/17/17 12/17/17 Unknown History Pantoprazole [Protonix TAB] 40 mg PO QDAY 12/17/17 12/17/17 Unknown History Polyethylene Glycol 3350 [Purelax] 17 gm PO QDAY PRN 12/17/17 12/17/17 Unknown History Simethicone [Bicarsim] 80 mg PO TID PRN 12/17/17 12/17/17 Unknown History diphenhydrAMINE [Benadryl CAP] 50 mg PO Q6H PRN 12/17/17 12/17/17 Unknown History Prednisone [predniSONE 10 mg 10 mg PO .TAPER #1 tab.ds.pk 12/20/17 Unknown Rx (6-Day Pack, 21 Tabs)] Ciprofloxacin HCl [Ciprofloxacin 500 mg PO Q12H #14 tab 01/02/18 Unknown Rx TAB] ED Review of Systems ROS: Stated complaint: JI Other details as noted in HPI Comment: All other systems reviewed and negative Constitutional: denies: chills, fever Eyes: denies: eye pain, eye discharge, vision change ENT: denies: ear pain, dental pain Respiratory: denies: cough, shortness of breath, wheezing Cardiovascular: denies: chest pain, palpitations Gastrointestinal: denies: abdominal pain, nausea, diarrhea Genitourinary: denies: urgency, dysuria, discharge Musculoskeletal: denies: back pain, joint swelling, arthralgia Skin: denies: rash, lesions Neurological: denies: headache, weakness, paresthesias Physical Exam - Physical Exam Vital Signs: Vital Signs 01/02/18 18:22 Temperature 98.7 F Pulse Rate 84 Respiratory 17 Rate Blood Pressure 146/78 O2 Sat by Pulse 100 Oximetry Physical Exam: GENERAL: The patient is well-developed well-nourished. HENT: Normocephalic. Atraumatic. Patient has moist mucous membranes. Oropharynx is clear. EYES: Extraocular motions are intact. NECK: Supple. Trachea is midline. There is a trach and collar in place. No current bleeding or discharge seen. CHEST/LUNGS: Clear to auscultation. There is no respiratory distress noted. HEART/CARDIOVASCULAR: Regular. There is no tachycardia. There is no murmur. ABDOMEN: Abdomen is soft, nontender. Patient has normal bowel sounds. Morbidly obese habitus. SKIN: Skin is warm and dry. NEURO: The patient is awake, alert, and oriented. The patient is cooperative. The patient has no focal neurologic deficits. The patient has normal speech. MUSCULOSKELETAL: There is no tenderness or deformity. There is no evidence of acute injury. ED Course Vital Signs 01/02/18 18:22 Temperature 98.7 F Pulse Rate 84 Respiratory 17 Rate Blood Pressure 146/78 O2 Sat by Pulse 100 Oximetry ED Medical Decision Making - Lab Data Result diagrams: 01/02/18 18:46 01/02/18 19:26 - Radiology Data Radiology results: report reviewed PROCEDURE: XR NECK SOFT TISSUE TECHNIQUE: Soft tissue neck radiographs, 2 views, including AP and lateral. CPT 81852 HISTORY: tracheal discharge and pain COMPARISON: No prior studies are available for comparison. FINDINGS: Lateral re-is grossly limited due to overlapping shoulders. Epiglottis is of normal thickness. Mild degree adenoid hypertrophy is noted. Otherwise nasopharyngeal and oropharyngeal airway is within normal limits. Vallecula appears normal a tracheostomy tube is in place. There are no abnormal radiopaque densities. IMPRESSION: Limited study due to shoulders overlapping the neck on lateral view. Mild adenoid hypertrophy. Otherwise unremarkable. Transcribed By: [facility] Dictated By: LAURIE MEZA Electronically Authenticated By: LAURIE MEZA Signed Date/Time: 01/02/18 4192 - Medical Decision Making Patient presents with the complaint of being called regarding a culture positive tracheostomy infection or sputum infection. The sputum culture from the trach that was obtained on December 18 came back showing pseudomonas. The patient had never taken any of the antibiotics for this as she says she never really received any notification. She denies any fever or shortness of breath but does say that she still has some greenish sputum. Vital signs are stable including being afebrile. Labs were unremarkable including no leukocytosis. Patient was given IV Levaquin, which is one of the antibiotics that was listed as being sensitive to the infection. We also obtained a repeat sputum culture. Since the patient is afebrile, without any leukocytosis, does not appear to be in any acute distress or have any signs of a septic infection, I believe the patient is safe for discharge home at this time. She will be placed on the fluoroquinolone. She'll be given referrals for primary care, ENT and pulmonology. She has been encouraged to return to the emergency department with any worsening of her symptoms, development of fever, shortness of breath, or any acute distress. She understands and agrees to the plan. Critical Care Time: No Critical care attestation.: If time is entered above; I have spent that time in minutes in the direct care of this critically ill patient, excluding procedure time. ED Disposition Clinical Impression: Tracheostomy infection Disposition: TO HOME OR SELFCARE Is pt being admited?: No Condition: Stable Additional Instructions: You were seen today regarding a culture positive tracheostomy infection that was found during her previous visit. We have sent another alternative to see if this is clearing up and the results should be back in the next few days. In the meantime, I have prescribed you antibiotics for this infection. I'm giving some referrals for primary care, ENT and pulmonology so you can establish care. Return to the emergency Department with any worsening of your symptoms, development of fever, shortness of breath, or with any acute distress. Prescriptions: Ciprofloxacin HCl [Ciprofloxacin TAB] 500 mg PO Q12H #14 tab Referrals: PIERCE HAYES JR, MD [Staff Physician] - 3-5 Days TAHIR LAWSON MD [Staff Physician] - 3-5 Days TAMIKA HANNA MD [Staff Physician] - 3-5 Days Time of Disposition: 22:00
[2018-01-02 21:41] VITALS: BP 143/80
--- NOTE | 2018-01-02 21:46 | XRay Report ---
FINAL REPORT PROCEDURE: XR NECK SOFT TISSUE TECHNIQUE: Soft tissue neck radiographs, 2 views, including AP and lateral. CPT 95431 HISTORY: tracheal discharge and pain COMPARISON: No prior studies are available for comparison. FINDINGS: Lateral re-is grossly limited due to overlapping shoulders. Epiglottis is of normal thickness. Mild degree adenoid hypertrophy is noted. Otherwise nasopharyngeal and oropharyngeal airway is within normal limits. Vallecula appears normal a tracheostomy tube is in place. There are no abnormal radiopaque densities. IMPRESSION: Limited study due to shoulders overlapping the neck on lateral view. Mild adenoid hypertrophy. Otherwise unremarkable.
== END 2018-01-03 00:59 | disposition home or self-care (01) ==
LOC: ED 17:54
DX: J95.02 Infection of tracheostomy stoma (principal); I10 Essential (primary) hypertension; J45.909 Unspecified asthma, uncomplicated
CPT/HCPCS: 36415; 70360; 80048; 82140; 85025; 87040; 87070; 87076; 87186; 87205; 96365; 99284; J1956

== ENCOUNTER 2020-12-11 23:54 | Inpatient (IN) | payer BC, MEDICARE ==
--- NOTE | 2020-12-12 00:20 | Emergency Department Report ---
ED Chest Pain HPI - General Chief Complaint: Dyspnea/Respdistress Stated Complaint: JI PUI?: No Time Seen by Provider: 12/12/20 00:07 Source: patient Mode of arrival: Stretcher Limitations: Physical Limitation - History of Present Illness Initial Comments: Chief complaint: Shortness of breath HPI: This is a 25-year-old female with history of severe obesity BMI 94, chronic respiratory failure, tracheostomy on oxygen, diastolic heart failure, anemia, asthma, pulmonary embolism on Lovenox who presents with sharp chest pain and shortness of breath for the past 3 days. At its worst, pain is 7 out of 10 central left-sided. Pain is currently 3 out of 10 in severity. No radiation. Pain is persistent or worse with cough and inspiration. Patient has mild headache. Mostly pressure type headache when she coughs. In September patient was admitted for syncope work-up at [facility]. During that admission she was diagnosed with pulmonary embolism. She will require Lovenox for 3 months. Patient provided medication list Albuterol, f Furosemide 20 mg Amlodipine 10 mg Flovent Levothyroxine 150 mcg Hydroxyzine 10 mg Gabapentin 300 mg Lovenox 180 mg Complaint: chest pain -: Gradual, days(s) (3 days ago) Onset: during rest Pain Location: substernal, left chest Severity: mild Severity scale (0 -10): 3 Quality: sharp Consistency: constant Improves With: nothing Worsens With: inspiration, other (Cough) re: dyspnea Other Symptoms: cough Treatments Prior to Arrival: none - Related Data Home Medications Medication Instructions Recorded Confirmed Last Taken Acetaminophen [Acetaminophen TAB] 650 mg PO Q4H PRN 12/17/17 01/29/18 Unknown Benzonatate [Tessalon Perle] 100 mg PO TID PRN 12/17/17 01/29/18 Unknown Bisacodyl [Bisac-Evac] 10 mg RC DAILY PRN 12/17/17 01/29/18 Unknown Ipratropium/Albuterol Sulfate 1 ampul IH Q4HR 12/17/17 01/29/18 Unknown [DUONEB *Not for PRN Use*] Mupirocin [Bactroban 2% OINT] 1 applic TP TID 12/17/17 01/29/18 Unknown Ondansetron [Zofran TAB] 4 mg PO Q4HR PRN 12/17/17 01/29/18 Unknown Pantoprazole [Protonix TAB] 40 mg PO QDAY 12/17/17 01/29/18 Unknown Polyethylene Glycol 3350 [Purelax] 17 gm PO QDAY PRN 12/17/17 01/29/18 Unknown Simethicone [Bicarsim] 80 mg PO TID PRN 12/17/17 01/29/18 Unknown diphenhydrAMINE [Benadryl CAP] 50 mg PO Q6H PRN 12/17/17 01/29/18 Unknown Previous Rx's Medication Instructions Recorded Last Taken Type Arformoterol Nebu [Brovana Nebu] 15 mcg IH Q12HRT #60 ml 02/20/18 Unknown Rx Budesonide [Pulmicort Respules] 0.5 mg IH Q12HRT #60 nebu 02/20/18 Unknown Rx Allergies Allergy/AdvReac Type Severity Reaction Status Date / Time No Known Allergies Allergy Verified 12/17/17 04:39 Heart Score - HEART Score History: Slightly suspicious EKG: Non-specific Age: < 45 Risk factors: 1-2 risk factors Troponin: < normal limit HEART Score: 2 - EKG Read Time Time EKG Completed: 00:52 EKG Read Time: 00:55 ED Review of Systems ROS: Stated complaint: JI Other details as noted in HPI Comment: All other systems reviewed and negative Constitutional: denies: fever, malaise Respiratory: shortness of breath Cardiovascular: chest pain Gastrointestinal: denies: abdominal pain, nausea, vomiting ED Past Medical Hx - Past Medical History Previous Medical History?: Yes Hx Hypertension: Yes Hx Congestive Heart Failure: Yes Hx Deep Vein Thrombosis: No Hx Asthma: Yes Hx COPD: Yes Additional medical history: Repiratory failure - Surgical History Past Surgical History?: Yes Hx Pacemaker: No Hx Internal Defibrillator: No Additional Surgical History: Trach - Social History Smoking Status: Never Smoker Substance Use Type: None - Medications Home Medications: Home Medications Medication Instructions Recorded Confirmed Last Taken Type Acetaminophen [Acetaminophen TAB] 650 mg PO Q4H PRN 12/17/17 01/29/18 Unknown History Benzonatate [Tessalon Perle] 100 mg PO TID PRN 12/17/17 01/29/18 Unknown History Bisacodyl [Bisac-Evac] 10 mg RC DAILY PRN 12/17/17 01/29/18 Unknown History Ipratropium/Albuterol Sulfate 1 ampul IH Q4HR 12/17/17 01/29/18 Unknown History [DUONEB *Not for PRN Use*] Mupirocin [Bactroban 2% OINT] 1 applic TP TID 12/17/17 01/29/18 Unknown History Ondansetron [Zofran TAB] 4 mg PO Q4HR PRN 12/17/17 01/29/18 Unknown History Pantoprazole [Protonix TAB] 40 mg PO QDAY 12/17/17 01/29/18 Unknown History Polyethylene Glycol 3350 [Purelax] 17 gm PO QDAY PRN 12/17/17 01/29/18 Unknown History Simethicone [Bicarsim] 80 mg PO TID PRN 12/17/17 01/29/18 Unknown History diphenhydrAMINE [Benadryl CAP] 50 mg PO Q6H PRN 12/17/17 01/29/18 Unknown History Arformoterol Nebu [Brovana Nebu] 15 mcg IH Q12HRT #60 ml 02/20/18 Unknown Rx Budesonide [Pulmicort Respules] 0.5 mg IH Q12HRT #60 nebu 02/20/18 Unknown Rx ED Physical Exam - General Limitations: Physical Limitation General appearance: alert, in no apparent distress, other (Speaking full sentences without effort) - Head Head exam: Present: atraumatic, normocephalic - Eye Eye exam: Present: normal appearance - ENT ENT exam: Present: mucous membranes moist - Neck Neck exam: Present: normal inspection, full ROM, other (Tracheostomy with trach collar oxygen supplied) - Respiratory Respiratory exam: Present: normal lung sounds bilaterally. Absent: respiratory distress, wheezes, rales, rhonchi - Cardiovascular Cardiovascular Exam: Present: normal rhythm, tachycardia, normal heart sounds. Absent: systolic murmur, diastolic murmur, rubs, gallop - GI/Abdominal GI/Abdominal exam: Present: soft, normal bowel sounds. Absent: distended, tenderness, guarding, rebound - Extremities Exam Extremities exam: Present: normal inspection - Neurological Exam Neurological exam: Present: alert, oriented X3 - Psychiatric Psychiatric exam: Present: normal affect, normal mood - Skin Skin exam: Present: warm, dry, intact, normal color. Absent: rash ED Course Vital Signs 12/12/20 12/12/20 12/12/20 00:00 00:10 00:11 Temperature 98.2 F Pulse Rate 105 H Pulse Rate [ Bilateral Throughout] Respiratory 25 H Rate Respiratory Rate [Bilateral Throughout] Blood Pressure 145/90 [Left] O2 Sat by Pulse 100 100 Oximetry O2 Sat by Pulse 100 Oximetry [ Assessment] 12/12/20 12/12/20 12/12/20 00:38 00:48 01:36 Temperature Pulse Rate Pulse Rate [ 110 H Bilateral Throughout] Respiratory 19 Rate Respiratory 21 Rate [Bilateral Throughout] Blood Pressure [Left] O2 Sat by Pulse 100 Oximetry O2 Sat by Pulse Oximetry [ Assessment] ED Medical Decision Making - Lab Data Result diagrams: 12/12/20 00:42 12/12/20 00:42 - EKG Data -: EKG Interpreted by Tn EKG shows normal: sinus rhythm, axis, ST-T waves Rate: tachycardia - EKG Data 12/12/20 02:24 EKG obtained 005 EKG interpreted by or Sinus tachycardia rate 100 bpm normal axis normal intervals incomplete right bundle branch block no ST elevation nonischemic T wave pattern - Radiology Data Radiology results: report reviewed AP portable chest: Moderate enlargement of cardiac silhouette, perihilar interstitial opacities likely related to pulmonary edema - Medical Decision Making 1. Acute on chronic respiratory failure: Pulmonary edema seen on chest radiograph history of diastolic heart failure. IV furosemide initiated emergen cy department. Also suspect asthma exacerbation. Patient treated with DuoNeb antibiotics and steroids. 2. Chest pain atypical for ACS. First troponin negative. Patient is at high risk for pulmonary embolism considering severe obesity BMI 94. Patient has been compliant with Lovenox therapy. No evidence of severe heart strain seen on EKG. Normal troponin. Large pulmonary emboli not likely in this scenario. Chest pain likely chest wall pain. Patient received home dose of Lovenox in the emergency department. Patient is concerned for pneumonia. She states that her symptoms feel like previous bout of pneumonia. Will treat patient for committee acquired pneumonia. Covid precautions ordered. COVID test ordered. Patient is admitted to hospital service for further treatment and care. Critical care attestation.: If time is entered above; I have spent that time in minutes in the direct care of this critically ill patient, excluding procedure time. ED Disposition Clinical Impression: Acute and chronic respiratory failure, Community acquired pneumonia, Acute diastolic heart failure, Tracheostomy dependence, Obesity hypoventilation syndrome, Oxygen dependent, Morbidly obese, Acute asthma exacerbation Disposition: [id number] OP ADMIT IP TO THIS HOSP Is pt being admited?: Yes Does the pt Need Aspirin: No Condition: Stable Instructions: Bacterial Pneumonia (ED)
[2020-12-12] MEDS ORDERED: oxyCODONE /ACETAMINOPHEN 5-325MG TAB PO ONE (00:30)
[2020-12-12] MEDS ORDERED: IPRATROPIUM/ALBUTEROL SULFATE 3 ML AMPUL.NEB IH ONE (00:30)
[2020-12-12] MEDS ORDERED: predniSONE 20 MG TAB PO ONE (00:30)
[2020-12-12] MEDS ORDERED: AZITHROMYCIN 250 MG TAB PO ONE (00:31)
[2020-12-12] MEDS ORDERED: ENOXAPARIN 120 MG/0.8 ML INJ SUB-Q ONE (00:33)
--- NOTE | 2020-12-12 00:56 | XRay Report ---
CHEST 1 VIEW, 12/11/2020 11:44 PM CLINICAL INFORMATION/INDICATION: Shortness of breath COMPARISON: None FINDINGS: SUPPORT DEVICES: Tracheostomy tube is present HEART: The cardiac silhouette is moderately enlarged. LUNGS/PLEURA: Moderate perihilar interstitial opacities are noted. No large pleural effusion is ident ified. ADDITIONAL FINDINGS: No additional acute findings. IMPRESSION: 1. Moderate enlargement of the cardiac silhouette. 2. Perihilar interstitial opacities likely related to pulmonary edema. Signer Name: Kiera Swann MD Signed: 12/12/2020 12:52 AM Workstation Name: [id number]
[2020-12-12 01:05] LABS: Basophils # (Auto) 0.1 K/mm3 (0.0-0.1); Basophils % (Auto) 1.1 % (0.0-1.8); Eosinophils # (Auto) 0.3 K/mm3 (0.0-0.4); Hematocrit 25.1 % (30.3-42.9); Hemoglobin 8.2 gm/dl (10.1-14.3); Lymphocytes # (Auto) 1.3 K/mm3 (1.2-5.4); Lymphocytes % (Auto) 12.8 % (13.4-35.0); Mean Corpuscular HGB Conc 33 % (30-34); Mean Corpuscular Volume 78 fl (79-97); Monocytes # (Auto) 0.7 K/mm3 (0.0-0.8); Monocytes % (Auto) 7.5 % (0.0-7.3); Platelet Count 348 K/mm3 (140-440); Red Blood Count 3.24 M/mm3 (3.65-5.03); Red Cell Distribution Width 19.2 % (13.2-15.2)
[2020-12-12 01:28] LABS: Blood Urea Nitrogen 6 mg/dL (7-17); Calcium 8.4 mg/dL (8.4-10.2); Hemolysis Index 11
[2020-12-12] MEDS ORDERED: FUROSEMIDE 40 MG/4 ML INJ IV ONE (01:30)
[2020-12-12 01:43] LABS: BUN/Creatinine Ratio 10
[2020-12-12] MEDS ORDERED: ENOXAPARIN 60 MG/0.6 ML INJ SUB-Q ONE (02:00)
[2020-12-12] MEDS ORDERED: cefTRIAXone/NS 1 GM/50 ML 1 GM/50 ML BAG IV ONE (02:29)
[2020-12-12 03:13] LABS: C-Reactive Protein 1.5 mg/dL (0.00-1.30)
[2020-12-12] MEDS ORDERED: MAGNESIUM HYDROXIDE (MOM) ORAL LIQD UDC PO PRN (04:13)
[2020-12-12] MEDS ORDERED: ACETAMINOPHEN 325 MG TAB PO PRN (04:13)
[2020-12-12] MEDS ORDERED: ONDANSETRON 4 MG/2 ML INJ IV PRN (04:13)
[2020-12-12] MEDS ORDERED: BENZONATATE 100 MG CAP PO PRN (04:22)
[2020-12-12] MEDS ORDERED: diphenhydrAMINE 25 MG CAP PO PRN (04:22)
--- NOTE | 2020-12-12 04:28 | History and Physical Report ---
History of Present Illness Date of examination: 12/12/20 Date of admission: 12/12/20 02:28 Chief complaint: Shortness of breath History of present illness: 25-year-old female with known history of morbid obesity with BMI of 94,, chronic respiratory failure, tracheostomy on oxygen, anemia, history of asthma, diastolic heart failure and history of pulmonary embolism on Lovenox presents to the emergency room today complaining of shortness of breath for about 3 days. She has also had some mild chest discomfort especially in the midsternal and left-sided area of her chest. Pain was about 3/10 in severity. No known relieving or exacerbating factor. She has had some cough which is nonproductive. She has also had some mild headache but denies any dizziness. No nausea vomiting and no diarrhea. Patient denies any sick contacts and no recent travel. Denies any contact with anyone with COVID-19. She has not had a vaccination towards COVID-19. Work-up in the emergency room today reveals moderate enlargement of the cardiac silhouette, there is perihilar interstitial opacities likely related to pulmonary edema. Patient admitted with respiratory failure possibly secondary to underlying pneumonia versus congestive heart failure. Past History Past Medical History: COPD, heart failure, hypertension, other (Asthma) Past Surgical History: Other (Trach placement) Social history: no significant social history Family history: no significant family history Medications and Allergies Allergies Allergy/AdvReac Type Severity Reaction Status Date / Time No Known Allergies Allergy Verified 12/17/17 04:39 Home Medications Medication Instructions Recorded Confirmed Last Taken Type Acetaminophen [Acetaminophen TAB] 650 mg PO Q4H PRN 12/17/17 12/12/20 Unknown History Benzonatate [Tessalon Perle] 100 mg PO TID PRN 12/17/17 12/12/20 Unknown History Bisacodyl [Bisac-Evac] 10 mg RC DAILY PRN 12/17/17 12/12/20 Unknown History Ipratropium/Albuterol Sulfate 1 ampul IH Q4HR 12/17/17 12/12/20 Unknown History [DUONEB *Not for PRN Use*] Mupirocin [Bactroban 2% OINT] 1 applic TP TID 12/17/17 12/12/20 Unknown History Ondansetron [Zofran TAB] 4 mg PO Q4HR PRN 12/17/17 12/12/20 Unknown History Pantoprazole [Protonix TAB] 40 mg PO QDAY 12/17/17 12/12/20 Unknown History Polyethylene Glycol 3350 [Purelax] 17 gm PO QDAY PRN 12/17/17 12/12/20 Unknown History Simethicone [Bicarsim] 80 mg PO TID PRN 12/17/17 12/12/20 Unknown History diphenhydrAMINE [Benadryl CAP] 50 mg PO Q6H PRN 12/17/17 12/12/20 Unknown History Arformoterol Nebu [Brovana Nebu] 15 mcg IH Q12HRT #60 ml 02/20/18 12/12/20 Unknown Rx Budesonide [Pulmicort Respules] 0.5 mg IH Q12HRT #60 nebu 02/20/18 12/12/20 Unknown Rx Active Meds: Active Medications Acetaminophen (Acetaminophen 325 Mg Tab) 650 mg PO Q6H PRN PRN Reason: Pain MILD(1-3)/Fever >100.5/[facility] Albuterol/Ipratropium (Ipratropium/Albuterol Sulfate 3 Ml Ampul.Neb) 1 ampul IH Q4HR [facility] Benzonatate (Benzonatate 100 Mg Cap) 100 mg PO TID PRN PRN Reason: Cough Diphenhydramine HCl (Diphenhydramine 50 Mg Cap) 50 mg PO Q6H PRN PRN Reason: Itching Ceftriaxone Sodium (Rocephin/Ns 2 Gm/100 Ml) 2 gm in 100 mls @ 200 mls/hr IV Q24H [facility]; Protocol Azithromycin (Zithromax/Ns) 500 mg in 250 mls @ 250 mls/hr IV Q24H [facility]; Protocol Magnesium Hydroxide (Magnesium Hydroxide (Mom) Oral Liqd Udc) 30 ml PO Q4H PRN PRN Reason: Constipation Ondansetron HCl (Ondansetron 4 Mg/2 Ml Inj) 4 mg IV Q8H PRN PRN Reason: Nausea And Vomiting Pantoprazole Sodium (Pantoprazole 40 Mg Tab) 40 mg PO QDAY [facility] Sodium Chloride (Sodium Chloride 0.9% 10 Ml Flush Syringe) 10 ml IV BID [facility] Sodium Chloride (Sodium Chloride 0.9% 10 Ml Flush Syringe) 10 ml IV PRN PRN PRN Reason: LINE FLUSH Review of Systems Constitutional: chills, no fever Ears, nose, mouth and throat: no nasal congestion, no sore throat Cardiovascular: chest pain, no palpitations Respiratory: cough, shortness of breath Gastrointestinal: no abdominal pain, no nausea, no vomiting, no diarrhea Genitourinary Female: no flank pain, no dysuria, no hematuria Musculoskeletal: no neck pain, no low back pain Integumentary: no rash, no pruritis Neurological: no headaches, no confusion Psychiatric: no anxiety, no depression Endocrine: no polyphagia, no polydipsia, no polyuria, no nocturia Exam - Constitutional Vitals: Temp Pulse Resp BP Pulse Ox 98.2 F 96 H 23 157/130 100 12/12/20 00:00 12/12/20 03:01 12/12/20 03:01 12/12/20 02:01 12/12/20 03:01 General appearance: Present: mild distress, obese - EENT Eyes: Present: PERRL, EOM intact ENT: hearing intact, clear oral mucosa, dentition normal - Neck Neck: Present: supple, normal ROM - Respiratory Respiratory effort: normal Respiratory: bilateral: diminished - Cardiovascular Rhythm: regular Heart Sounds: Present: S1 & S2. Absent: gallop, systolic murmur, diastolic murmur, rub, click - Extremities Extremities: no ischemia, pulses intact, pulses symmetrical, No edema, normal temperature, normal color, Full ROM Peripheral Pulses: within normal limits - Abdominal General gastrointestinal: Present: soft, distended, normal bowel sounds. Absent: non-tender, mass - Integumentary Integumentary: Present: clear, warm, dry. Absent: rash - Musculoskeletal Musculoskeletal: strength equal bilaterally - Psychiatric Psychiatric: appropriate mood/affect, intact judgment & insight, memory intact, cooperative - Neurologic Neurologic: CNII-XII intact, no focal deficits, moves all extremities HEART Score - HEART Score EKG: Non-specific Age: < 45 Risk factors: 1-2 risk factors Troponin: Troponin T < 0.010 ng/mL (0.00-0.029) 12/12/20 02:40 Troponin: < normal limit Results - Labs CBC & Chem 7: 12/12/20 00:42 12/12/20 02:38 Labs: Abnormal lab results 12/12/20 12/12/2012/12/21 Range/Units 00:42 00:42 02:38 RBC 3.24 L (3.65-5.03) M/mm3 Hgb 8.2 L (10.1-14.3) gm/dl Hct 25.1 L (30.3-42.9) % MCV 78 L (79-97) fl MCH 25 L (28-32) pg RDW 19.2 H (13.2-15.2) % Lymph % (Auto) 12.8 L (13.4-35.0) % [place] % (Auto) 7.5 H (0.0-7.3) % Seg Neutrophils % 75.6 H (40.0-70.0) % D-Dimer 454.72 H (0-234) ng/mlDDU Chloride 96.0 L (98-107) mmol/L Carbon Dioxide 37 H (22-30) mmol/L BUN 6 L (7-17) mg/dL Glucose (65-100) mg/dL Lactate Dehydrogenase (91-180) units/L C-Reactive Protein (0.00-1.30) mg/dL 12/12/20 Range/Units 02:38 RBC (3.65-5.03) M/mm3 Hgb (10.1-14.3) gm/dl Hct (30.3-42.9) % MCV (79-97) fl MCH (28-32) pg RDW (13.2-15.2) % Lymph % (Auto) (13.4-35.0) % [place] % (Auto) (0.0-7.3) % Seg Neutrophils % (40.0-70.0) % D-Dimer (0-234) ng/mlDDU Chloride (98-107) mmol/L Carbon Dioxide (22-30) mmol/L BUN (7-17) mg/dL Glucose 125 H (65-100) mg/dL Lactate Dehydrogenase 219 H (91-180) units/L C-Reactive Protein 1.50 H (0.00-1.30) mg/dL Assessment and Plan - Patient Problems (1) Acute and chronic respiratory failure Current Visit: Yes Status: Acute Plan to address problem: Possibly secondary to pulmonary edema versus underlying pneumonia. Patient is also trach dependent. We will request pulmonology evaluation. (2) Community acquired pneumonia Current Visit: Yes Status: Acute Plan to address problem: Patient placed on empiric IV antibiotics. (3) Morbidly obese Current Visit: Yes Status: Acute Plan to address problem: Request dietary consult. (4) Tracheostomy dependence Current Visit: Yes Status: Acute Plan to address problem: Patient to be followed up by pulmonology and respiratory therapy as needed. (5) DVT prophylaxis Current Visit: Yes Status: Acute Plan to address problem: Patient currently on anticoagulation with Lovenox. (6) Full code status Current Visit: Yes Status: Acute Plan to address problem: Patient is full code.
[2020-12-12] MEDS ORDERED: IPRATROPIUM/ALBUTEROL SULFATE 3 ML AMPUL.NEB IH SCH (08:00)
[2020-12-12] MEDS: PANTOPRAZOLE 40 MG TAB PO SCH (09:55)
[2020-12-12] MEDS: cefTRIAXone/NS 2 GM/100 ML 2 GM/100 ML BAG IV SCH (09:55)
[2020-12-12] MEDS: AZITHROMYCIN/NS 500 MG/250 ML 500 MG/250 ML BAG IV SCH (09:55)
--- NOTE | 2020-12-12 11:08 | Event Note ---
Date: 12/12/20 Patient seen and examined sitting up at the bedside she tells me that she is feeling better compared to yesterday. Still awaiting PUI testing. She reports that she is expected to lose weight to have bariatric surgery before the trach will be removed. She was recently seen at [facility] we will request records from [facility] continue anticoagulation. She also reports that she has had irregular periods this could be secondary to her morbid obesity but will refer her to [facility] outpatient. She verbalized understanding of the treatment plan
--- NOTE | 2020-12-12 11:57 | Consultation ---
History of Present Illness Consult date: 12/12/20 Requesting physician: MARIEL COSBY Reason for consult: other History of present illness: 25 y/o morbidly obese female with chronic respiratory failure, trach dependent, admitted with difficulty breathing. Past History Past Medical History: COPD, heart failure, hypertension, other (Asthma) Past Surgical History: Other (Trach placement) Social history: no significant social history Family history: no significant family history Medications and Allergies Allergies Allergy/AdvReac Type Severity Reaction Status Date / Time No Known Allergies Allergy Verified 12/17/17 04:39 Home Medications Medication Instructions Recorded Confirmed Last Taken Type Acetaminophen [Acetaminophen TAB] 650 mg PO Q4H PRN 12/17/17 12/12/20 Unknown History Benzonatate [Tessalon Perle] 100 mg PO TID PRN 12/17/17 12/12/20 Unknown History Bisacodyl [Bisac-Evac] 10 mg RC DAILY PRN 12/17/17 12/12/20 Unknown History Ipratropium/Albuterol Sulfate 1 ampul IH Q4HR 12/17/17 12/12/20 Unknown History [DUONEB *Not for PRN Use*] Mupirocin [Bactroban 2% OINT] 1 applic TP TID 12/17/17 12/12/20 Unknown History Ondansetron [Zofran TAB] 4 mg PO Q4HR PRN 12/17/17 12/12/20 Unknown History Pantoprazole [Protonix TAB] 40 mg PO QDAY 12/17/17 12/12/20 Unknown History Polyethylene Glycol 3350 [Purelax] 17 gm PO QDAY PRN 12/17/17 12/12/20 Unknown History Simethicone [Bicarsim] 80 mg PO TID PRN 12/17/17 12/12/20 Unknown History diphenhydrAMINE [Benadryl CAP] 50 mg PO Q6H PRN 12/17/17 12/12/20 Unknown History Arformoterol Nebu [Brovana Nebu] 15 mcg IH Q12HRT #60 ml 02/20/18 12/12/20 Unknown Rx Budesonide [Pulmicort Respules] 0.5 mg IH Q12HRT #60 nebu 02/20/18 12/12/20 Unknown Rx Active Meds: Active Medications Acetaminophen (Acetaminophen 325 Mg Tab) 650 mg PO Q6H PRN PRN Reason: Pain MILD(1-3)/Fever >100.5/[facility] Albuterol/Ipratropium (Ipratropium/Albuterol Sulfate 3 Ml Ampul.Neb) 1 ampul IH TIDRT [facility] Benzonatate (Benzonatate 100 Mg Cap) 100 mg PO TID PRN PRN Reason: Cough Diphenhydramine HCl (Diphenhydramine 25 Mg Cap) 50 mg PO Q6H PRN PRN Reason: Itching Ceftriaxone Sodium (Rocephin/Ns 2 Gm/100 Ml) 2 gm in 100 mls @ 200 mls/hr IV Q24HR [facility]; Protocol Last Admin: 12/12/20 09:55 Dose: 200 mls/hr Documented by: Azithromycin (Zithromax/Ns) 500 mg in 250 mls @ 250 mls/hr IV Q24HR [facility]; Protocol Last Admin: 12/12/20 09:55 Dose: 250 mls/hr Documented by: Magnesium Hydroxide (Magnesium Hydroxide (Mom) Oral Liqd Udc) 30 ml PO Q4H PRN PRN Reason: Constipation Ondansetron HCl (Ondansetron 4 Mg/2 Ml Inj) 4 mg IV Q8H PRN PRN Reason: Nausea And Vomiting Pantoprazole Sodium (Pantoprazole 40 Mg Tab) 40 mg PO QDAY [facility] Last Admin: 12/12/20 09:55 Dose: 40 mg Documented by: Sodium Chloride (Sodium Chloride 0.9% 10 Ml Flush Syringe) 10 ml IV BID [facility] Last Admin: 12/12/20 09:55 Dose: 10 ml Documented by: Sodium Chloride (Sodium Chloride 0.9% 10 Ml Flush Syringe) 10 ml IV PRN PRN PRN Reason: LINE FLUSH Physical Examination Vital signs: Vital Signs Temp Pulse Resp BP Pulse Ox 98.2 F 105 H 25 H 145/90 100 12/12/20 00:00 12/12/20 00:00 12/12/20 00:00 12/12/20 00:00 12/12/20 00:00 Deferred to preserve PPE as patient is a COVID PUI Results - Laboratory Findings CBC and BMP: 12/12/20 00:42 12/12/20 02:38 PT/INR, D-dimer D-Dimer 454.72 ng/mlDDU (0-234) H 12/12/20 02:38 Abnormal lab findings: Abnormal Labs 12/12/20 12/12/20 12/12/20 00:42 00:42 02:38 RBC 3.24 L Hgb 8.2 L Hct 25.1 L MCV 78 L MCH 25 L RDW 19.2 H Lymph % (Auto) 12.8 L [place] % (Auto) 7.5 H Seg Neutrophils % 75.6 H D-Dimer 454.72 H Chloride 96.0 L Carbon Dioxide 37 H BUN 6 L Glucose Lactate Dehydrogenase C-Reactive Protein 12/12/20 02:38 RBC Hgb Hct MCV MCH RDW Lymph % (Auto) [place] % (Auto) Seg Neutrophils % D-Dimer Chloride Carbon Dioxide BUN Glucose 125 H Lactate Dehydrogenase 219 H C-Reactive Protein 1.50 H - Diagnostic Findings Chest x-ray: image reviewed Assessment and Plan 25 y/o female with acute on chronic respiratory failure, trached and morbidly, morbidly obese. 1. Follow up COVID 2. Weight loss (needs bariatric surgery) 3. Indefinite trach 4. Ok with nebs but if COVID positive will need puffer therapy and steroids.
[2020-12-12] MEDS: IPRATROPIUM/ALBUTEROL SULFATE 3 ML AMPUL.NEB IH SCH ×2 (13:45→20:39)
--- NOTE | 2020-12-12 15:02 | Electrocardiograph Report ---
[facility] Test Date: 2020-12-12 Test Time: 00:52:18 Pat Name: DARIEN SPENCE Department: Room: A365 1 Gender: F [employer] Supervisor: JOLLY : 1995 Requested By: KATHRINE TRIPP Order Number: [id number] Reading MD: Duong Constantino Measurements Intervals [place] Rate: 101 P: 45 IA: 160 QRS: 58 QRSD: 89 T: 31 QT: 348 QTc: 451 Interpretive Statements Sinus tachycardia Probable left atrial enlargement Low voltage, precordial leads No previous ECG available for comparison Electronically Signed On 12-12-2020 15:01:49 EDT by Duong Constantino
--- NOTE | 2020-12-13 05:02 | Progress Note ---
Assessment and Plan 25 y/o female with acute on chronic respiratory failure, trached and morbidly, morbidly obese. 12/13/20: STarted patient on decadron 8 BID. Suggest ID consult to see if remdesivir and actemra are warranted. Need to find out how much O2 patient is on at home. Doubt patient can prone, but if so, would suggest this as tolerated. Very very guarded to poor prognosis given morbid obesity. However if her oxygen requirement does not increase in the next 24-48 hours, would suggest discharge to home pending on her arrangement and if she oxygen already set up there for use with her chronic trach which she likely does. 1. Follow up COVID 2. Weight loss (needs bariatric surgery) 3. Indefinite trach 4. Ok with nebs but if COVID positive will need puffer therapy and steroids. Subjective Date of service: 12/13/20 Interval history: Patient is COVID positive. Currently on trach collar at 8 liters with good sats. Objective Vital Signs - 12hr 12/12/20 12/12/20 12/12/20 17:41 20:39 20:40 Temperature 98.5 F Pulse Rate 75 Pulse Rate [ 94 H Bilateral Throughout] Respiratory 20 Rate Respiratory 20 Rate [Bilateral Throughout] Blood Pressure 124/85 O2 Sat by Pulse 100 99 Oximetry 12/12/20 12/13/20 21:05 04:10 Temperature 98.0 F 97.7 F Pulse Rate 92 H 84 Pulse Rate [ Bilateral Throughout] Respiratory 20 20 Rate Respiratory Rate [Bilateral Throughout] Blood Pressure 120/70 119/49 O2 Sat by Pulse 94 99 Oximetry CBC and BMP: 12/12/20 00:42 12/12/20 02:38 ABG, PT/INR, D-dimer: PT/INR, D-dimer D-Dimer 454.72 ng/mlDDU (0-234) H 12/12/20 02:38 Abnormal lab findings: Abnormal Labs 12/12/20 12/12/20 12/12/20 00:42 00:42 02:38 RBC 3.24 L Hgb 8.2 L Hct 25.1 L MCV 78 L MCH 25 L RDW 19.2 H Lymph % (Auto) 12.8 L [place] % (Auto) 7.5 H Seg Neutrophils % 75.6 H D-Dimer 454.72 H Chloride 96.0 L Carbon Dioxide 37 H BUN 6 L Glucose Lactate Dehydrogenase C-Reactive Protein Coronavirus (PCR) 12/12/20 12/12/20 02:38 Unknown RBC Hgb Hct MCV MCH RDW Lymph % (Auto) [place] % (Auto) Seg Neutrophils % D-Dimer Chloride Carbon Dioxide BUN Glucose 125 H Lactate Dehydrogenase 219 H C-Reactive Protein 1.50 H Coronavirus (PCR) Positive A
[2020-12-13 05:46] LABS: Basophils % (Auto) 0.4 % (0.0-1.8); Eosinophils # (Auto) 0.2 K/mm3 (0.0-0.4); Eosinophils % (Auto) 2.6 % (0.0-4.3); Lymphocytes # (Auto) 1.6 K/mm3 (1.2-5.4); Lymphocytes % (Auto) 24.6 % (13.4-35.0); Mean Corpuscular HGB Conc 31 % (30-34); Mean Corpuscular Volume 78 fl (79-97); Monocytes # (Auto) 0.7 K/mm3 (0.0-0.8); Platelet Count 335 K/mm3 (140-440); Red Blood Count 3.35 M/mm3 (3.65-5.03)
[2020-12-13 06:01] LABS: INR 1.07 (0.87-1.13)
[2020-12-13 06:03] LABS: Blood Urea Nitrogen 8 mg/dL (7-17); Calcium 8.1 mg/dL (8.4-10.2); Hemolysis Index 0
[2020-12-13 06:06] LABS: BUN/Creatinine Ratio 13
[2020-12-13] MEDS: IPRATROPIUM/ALBUTEROL SULFATE 3 ML AMPUL.NEB IH SCH ×3 (08:23→20:23)
[2020-12-13] MEDS: DEXAMETHASONE 4 MG TAB PO SCH ×2 (10:12→22:51)
[2020-12-13] MEDS: PANTOPRAZOLE 40 MG TAB PO SCH (10:12)
[2020-12-13] MEDS: AZITHROMYCIN/NS 500 MG/250 ML 500 MG/250 ML BAG IV SCH (10:12)
[2020-12-13] MEDS: cefTRIAXone/NS 2 GM/100 ML 2 GM/100 ML BAG IV SCH (10:12)
--- NOTE | 2020-12-13 10:47 | Consultation ---
History of Present Illness - Reason for Consult Consult date: 12/13/20 - History of Present Illness 25 yo F PMHx morbid obesity (BMI 94), chronic respiratory failure on O2, asthmia, diastolic heart failure, PE presented to the hospital complaining of SB for the past 3 day. She had associated mild chest pain. She was not vaccinated against COVID-19. Afebrile, normal white count. COVID positive. Normal renal function. Inflammatory markers mildly elevated. Procalcitonin normal. Imaging personally reviewed: CXR: Perihilar interstitial opacities. ?edema Review of systems: Deferred to reduce to the risk of transmission of COVID-19 Past History Past Medical History: COPD, heart failure, hypertension, other (Asthma) Past Surgical History: Other (Trach placement) Social history: no significant social history Family history: no significant family history Medications and Allergies Allergies Allergy/AdvReac Type Severity Reaction Status Date / Time No Known Allergies Allergy Verified 12/17/17 04:39 Home Medications Medication Instructions Recorded Confirmed Last Taken Type Acetaminophen [Acetaminophen TAB] 650 mg PO Q4H PRN 12/17/17 12/12/20 Unknown History Benzonatate [Tessalon Perle] 100 mg PO TID PRN 12/17/17 12/12/20 Unknown History Bisacodyl [Bisac-Evac] 10 mg RC DAILY PRN 12/17/17 12/12/20 Unknown History Ipratropium/Albuterol Sulfate 1 ampul IH Q4HR 12/17/17 12/12/20 Unknown History [DUONEB *Not for PRN Use*] Mupirocin [Bactroban 2% OINT] 1 applic TP TID 12/17/17 12/12/20 Unknown History Ondansetron [Zofran TAB] 4 mg PO Q4HR PRN 12/17/17 12/12/20 Unknown History Pantoprazole [Protonix TAB] 40 mg PO QDAY 12/17/17 12/12/20 Unknown History Polyethylene Glycol 3350 [Purelax] 17 gm PO QDAY PRN 12/17/17 12/12/20 Unknown History Simethicone [Bicarsim] 80 mg PO TID PRN 12/17/17 12/12/20 Unknown History diphenhydrAMINE [Benadryl CAP] 50 mg PO Q6H PRN 12/17/17 12/12/20 Unknown History Arformoterol Nebu [Brovana Nebu] 15 mcg IH Q12HRT #60 ml 02/20/18 12/12/20 Unknown Rx Budesonide [Pulmicort Respules] 0.5 mg IH Q12HRT #60 nebu 02/20/18 12/12/20 Unknown Rx Active Meds: Active Medications Acetaminophen (Acetaminophen 325 Mg Tab) 650 mg PO Q6H PRN PRN Reason: Pain MILD(1-3)/Fever >100.5/[facility] Albuterol/Ipratropium (Ipratropium/Albuterol Sulfate 3 Ml Ampul.Neb) 1 ampul IH TIDRT [facility] Last Admin: 12/13/20 08:23 Dose: 1 ampul Documented by: Benzonatate (Benzonatate 100 Mg Cap) 100 mg PO TID PRN PRN Reason: Cough Dexamethasone (Dexamethasone 4 Mg Tab) 8 mg PO Q12HR [facility] Last Admin: 12/13/20 10:12 Dose: 8 mg Documented by: Diphenhydramine HCl (Diphenhydramine 25 Mg Cap) 50 mg PO Q6H PRN PRN Reason: Itching Ceftriaxone Sodium (Rocephin/Ns 2 Gm/100 Ml) 2 gm in 100 mls @ 200 mls/hr IV Q24HR [facility]; Protocol Stop: 12/15/20 10:29 Last Admin: 12/13/20 10:12 Dose: 200 mls/hr Documented by: Azithromycin (Zithromax/Ns) 500 mg in 250 mls @ 250 mls/hr IV Q24HR [facility]; Protocol Stop: 12/15/20 10:59 Last Admin: 12/13/20 10:12 Dose: 250 mls/hr Documented by: Magnesium Hydroxide (Magnesium Hydroxide (Mom) Oral Liqd Udc) 30 ml PO Q4H PRN PRN Reason: Constipation Ondansetron HCl (Ondansetron 4 Mg/2 Ml Inj) 4 mg IV Q8H PRN PRN Reason: Nausea And Vomiting Pantoprazole Sodium (Pantoprazole 40 Mg Tab) 40 mg PO QDAY [facility] Last Admin: 12/13/20 10:12 Dose: 40 mg Documented by: Sodium Chloride (Sodium Chloride 0.9% 10 Ml Flush Syringe) 10 ml IV BID [facility] Last Admin: 12/13/20 10:11 Dose: 10 ml Documented by: Sodium Chloride (Sodium Chloride 0.9% 10 Ml Flush Syringe) 10 ml IV PRN PRN PRN Reason: LINE FLUSH Physical Examination - Physical Exam Narrative exam: Physical exam deferred to reduce risk of transmission of COVID-19. Please refer to primary team's note. - Constitutional Vitals: Vital Signs Temp Pulse Resp BP Pulse Ox 97.7 F 88 18 119/49 99 12/13/20 04:10 12/13/20 08:23 12/13/20 08:23 12/13/20 04:10 12/13/20 09:05 Temperature -Last 24 Hours Temperature 97.7 F Temperature 98.0 F Temperature 98.5 F Temperature 98.9 F Temperature 98.5 F Results - Labs CBC & Chem 7: 12/13/20 05:06 12/13/20 05:06 Labs: Abnormal lab results 12/12/20 12/13/20 12/13/20 Range/Units Unknown 05:06 05:06 RBC 3.35 L (3.65-5.03) M/mm3 Hgb 8.0 L (10.1-14.3) gm/dl Hct 26.0 L (30.3-42.9) % MCV 78 L (79-97) fl MCH 24 L (28-32) pg RDW 19.0 H (13.2-15.2) % [place] % (Auto) 10.0 H (0.0-7.3) % Chloride 92.3 L (98-107) mmol/L Carbon Dioxide 41 H* (22-30) mmol/L [place] 8.1 L (8.4-10.2) mg/dL Coronavirus (PCR) Positive A (Negative) Assessment and Plan Cultures: COVID PCR: positive A/P: 25 yo F PMHx morbid obesity (BMI 94), chronic respiratory failure on O2, asthma, diastolic heart failure, PE #Acute on chronic respiratory failure: she is on chronic trach and O2 at home, unclear baseline at present. As she has minimally elevated inflammatory markers and atypical lung findings I'm unsure how much a role the COVID is playing into her current presentation. #COVID-19: no PNA on CXR and afebrile, however given her size and co-morbidities it is difficult to tell what exactly is driving her presentation. #Morbid obesity: with several associated co-morbidities Recs: -Continue dexamethasone. Ok with higher dosing considering her weight. -While unsure of role of COVID, recommend remdesivir as she has several comorbidities that could predispose her to a worse outcome -Not enough inflammation to warrant Actemra at the present time. -Monitor d-dimer as she has a history of PE as is unlikely to be able to fit into the CT scanner -Proning if able. -Stopped antibiotics due to normal procalcitonin. Thank you for the consult, we will continue to follow. Geovanna Matos MD [facility] O: [phone] F: [phone]
--- NOTE | 2020-12-13 14:10 | Progress Note ---
Assessment and Plan Assessment and plan: Assessment and Plan: 25-year-old -[place] female who is trach dependent who presents with acute respiratory failure in the context of Covid infection. - Patient Problems Acute and chronic respiratory failure Current Visit: Yes Status: Acute Plan to address problem: Possibly secondary to pulmonary edema versus underlying pneumonia. Patient is also trach dependent. Patient started on steroids Continue oxygen supplementation, patient seems to be at baseline Covid pneumonia Pulmonology and infectious disease consulted Patient started on steroids and remdesivir Community acquired pneumonia Current Visit: Yes Status: Acute Plan to address problem: Procalcitonin low, infectious disease discontinued IV antibiotics Morbidly obese Current Visit: Yes Status: Acute Plan to address problem: Request dietary consult. Tracheostomy dependence Current Visit: Yes Status: Acute Plan to address problem: Continue pulmonology recommendations, patient seems to be at baseline no acute respiratory distress DVT prophylaxis Current Visit: Yes Status: Acute Plan to address problem: Patient currently on anticoagulation with Lovenox. Full code status Current Visit: Yes Status: Acute Plan to address problem: Patient is full code. History Interval history: 12/13/2020: Patient seen and examined, states that her breathing is improved and is back at baseline. Informed patient that she does have Covid. Hospitalist Physical - Physical exam Narrative exam: General appearance: Morbid obesity, no acute distress, well-nourished EENT: PERRL, EOM intact, hearing intact, clear oral mucosa Neck: Present: supple, normal ROM tracheostomy present Respiratory: Tracheostomy present, 6 L of oxygen, patient without any respiratory distress, due to patient's habitus, cannot hear breath sounds Cardiovascular: Regular rate/rhythm, Normal S1 & S2. No gallop, rub Extremities: no ischemia, No edema, normal temperature, normal color, Full ROM Abdominal: Large pannus, soft, no tenderness, non-distended, normal bowel sounds Integumentary: Present: clear, warm, dry no wounds, no erythema noted Psychiatric: appropriate mood/affect, intact judgment & insight Neurologic: CNII-XII intact, moves all extremities, no sensory or motor abnormalities - Constitutional Vitals: Temp Pulse Resp BP Pulse Ox 97.7 F 88 18 119/49 99 12/13/20 04:10 12/13/20 08:23 12/13/20 08:23 12/13/20 04:10 12/13/20 09:05 HEART Score - HEART Score EKG: Non-specific Age: < 45 Risk factors: 1-2 risk factors Troponin: Troponin T < 0.010 ng/mL (0.00-0.029) 12/12/20 02:40 Troponin: < normal limit Results - Labs CBC & Chem 7: 12/13/20 05:06 12/13/20 05:06 Labs: Laboratory Last Values WBC 6.6 K/mm3 (4.5-11.0) 12/13/20 05:06 RBC 3.35 M/mm3 (3.65-5.03) L 12/13/20 05:06 Hgb 8.0 gm/dl (10.1-14.3) L 12/13/20 05:06 Hct 26.0 % (30.3-42.9) L 12/13/20 05:06 MCV 78 fl (79-97) L 12/13/20 05:06 MCH 24 pg (28-32) L 12/13/20 05:06 MCHC 31 % (30-34) 12/13/20 05:06 RDW 19.0 % (13.2-15.2) H 12/13/20 05:06 Plt Count 335 K/mm3 (140-440) 12/13/20 05:06 Lymph % (Auto) 24.6 % (13.4-35.0) 12/13/20 05:06 Williamson % (Auto) 10.0 % (0.0-7.3) H 12/13/20 05:06 Eos % (Auto) 2.6 % (0.0-4.3) 12/13/20 05:06 Baso % (Auto) 0.4 % (0.0-1.8) 12/13/20 05:06 Lymph # (Auto) 1.6 K/mm3 (1.2-5.4) 12/13/20 05:06 Williamson # (Auto) 0.7 K/mm3 (0.0-0.8) 12/13/20 05:06 Eos # (Auto) 0.2 K/mm3 (0.0-0.4) 12/13/20 05:06 Baso # (Auto) 0.0 K/mm3 (0.0-0.1) 12/13/20 05:06 Seg Neutrophils % 62.4 % (40.0-70.0) 12/13/20 05:06 Seg Neutrophils # 4.1 K/mm3 (1.8-7.7) 12/13/20 05:06 PT 14.5 Sec. (12.2-14.9) 12/13/20 05:06 INR 1.07 (0.87-1.13) 12/13/20 05:06 D-Dimer 454.72 ng/mlDDU (0-234) H 12/12/20 02:38 Sodium 137 mmol/L (137-145) 12/13/20 05:06 Potassium 3.8 mmol/L (3.6-5.0) 12/13/20 05:06 Chloride 92.3 mmol/L (98-107) L 12/13/20 05:06 Carbon Dioxide 41 mmol/L (22-30) H* 12/13/20 05:06 Anion Gap 8 mmol/L 12/13/20 05:06 BUN 8 mg/dL (7-17) 12/13/20 05:06 Creatinine 0.6 mg/dL (0.6-1.2) 12/13/20 05:06 Estimated GFR > 60 ml/min 12/13/20 05:06 BUN/Creatinine Ratio 13 % 12/13/20 05:06 Glucose 78 mg/dL (65-100) 12/13/20 05:06 Calcium 8.1 mg/dL (8.4-10.2) L 12/13/20 05:06 Ferritin 50.2 ng/mL (10.0-200.0) 12/12/20 02:38 Lactate Dehydrogenase 219 units/L (91-180) H 12/12/20 02:38 Troponin T < 0.010 ng/mL (0.00-0.029) 12/12/20 02:40 C-Reactive Protein 1.50 mg/dL (0.00-1.30) H 12/12/20 02:38 NT-Pro-B Natriuret Pep 412.9 pg/mL (0-450) 12/12/20 01:54 Procalcitonin < 0.05 ng/mL (<0.15) 12/12/20 02:38 Coronavirus (PCR) Positive (Negative) A 12/12/20 Unknown Guevara/IV: Voiding Method Toilet Active Medications - Current Medications Current Medications: Generic Name Dose Route Start Last Admin Trade Name Freq PRN Reason Stop Dose Admin Acetaminophen 650 mg 12/12/20 04:13 Acetaminophen 325 Mg Tab PO Q6H PRN Pain MILD(1-3)/Fever >100.5/SIERRA Albuterol/Ipratropium 1 ampul 12/12/20 14:00 12/13/20 08:23 Ipratropium/Albuterol Sulfate 3 Ml Ampul.Neb IH 1 ampul TIDRT RADHA Administration Benzonatate 100 mg 12/12/20 04:22 Benzonatate 100 Mg Cap PO TID PRN Cough Dexamethasone 8 mg 12/13/20 10:00 12/13/20 10:12 Dexamethasone 4 Mg Tab PO 8 mg Q12HR RADHA Administration Diphenhydramine HCl 50 mg 12/12/20 04:22 Diphenhydramine 25 Mg Cap PO Q6H PRN Itching REMDESIVIR 200 mg/ Sodium 250 mls @ 500 mls/hr 12/14/20 14:00 Chloride IV 12/14/20 14:29 ONCE ONE REMDESIVIR 100 mg/ Sodium 250 mls @ 500 mls/hr 12/15/20 21:00 Chloride IV 12/18/20 21:29 Q24HR@2100 [facility] Magnesium Hydroxide 30 ml 12/12/20 04:13 Magnesium Hydroxide (Mom) Oral Liqd Udc PO Q4H PRN Constipation Ondansetron HCl 4 mg 12/12/20 04:13 Ondansetron 4 Mg/2 Ml Inj IV Q8H PRN Nausea And Vomiting Pantoprazole Sodium 40 mg 12/12/20 10:00 12/13/20 10:12 Pantoprazole 40 Mg Tab PO 40 mg QDAY RADHA Administration Sodium Chloride 10 ml 12/12/20 10:00 12/13/20 10:11 Sodium Chloride 0.9% 10 Ml Flush Syringe IV 10 ml BID RADHA Administration Sodium Chloride 10 ml 12/12/20 04:13 Sodium Chloride 0.9% 10 Ml Flush Syringe IV PRN PRN LINE FLUSH Sodium Chloride 50 ml 12/14/20 14:00 Sodium Chloride 0.9% 50 Ml Ivpb IV 12/18/20 21:01 Q24HR@2100 [facility] Nutrition/Malnutrition Assess - Dietary Evaluation Nutrition/Malnutrition Findings: Nutrition Notes Start: 12/12/20 12:19 Freq: Status: Active Protocol: Document 12/13/20 12:20 (Rec: 12/13/20 12:23 [id number]) Nutrition Notes Initial or Follow up Brief Note Current Diagnosis COPD,Hypertension,Heart Failure,Respiratory Failure Other Pertinent Diagnosis COVID(+) Current Diet Cardiac Subjective/Other Information FU for diet education. Pt reports likely to get bariatric surgery at [facility]. Pt is eating 75-100% of meals. Pt asked for nutritional handout but denied diet education. Left handout in chart. Nutrition Intervention Teaching Recipient Patient Learning Readiness Good Teaching Methods Handout Response to Teaching Verbalize understanding Education Handouts Provided General Healthful Nurition Barriers to Learning No Barriers RD phone number provided Yes Patient aware of follow up options Yes Revisit per MD consult or patient Sign Off request:
[2020-12-14] MEDS: IPRATROPIUM/ALBUTEROL SULFATE 3 ML AMPUL.NEB IH SCH ×3 (07:54→22:20)
[2020-12-14] MEDS: PANTOPRAZOLE 40 MG TAB PO SCH (09:47)
[2020-12-14] MEDS: DEXAMETHASONE 4 MG TAB PO SCH ×2 (09:47→22:38)
--- NOTE | 2020-12-14 10:05 | Progress Note ---
Assessment and Plan Assessment and plan: Assessment and Plan: 25-year-old -[place] female who is trach dependent who presents with acute respiratory failure in the context of Covid infection. - Patient Problems Acute and chronic respiratory failure Current Visit: Yes Status: Acute Plan to address problem: Possibly secondary to pulmonary edema versus underlying pneumonia. Patient is also trach dependent. Patient started on steroids Continue oxygen supplementation, patient seems to be at baseline Covid pneumonia Pulmonology and infectious disease consulted Patient started on steroids and remdesivir Community acquired pneumonia Current Visit: Yes Status: Acute Plan to address problem: Procalcitonin low, infectious disease discontinued IV antibiotics Morbidly obese Current Visit: Yes Status: Acute Plan to address problem: Request dietary consult. Tracheostomy dependence Current Visit: Yes Status: Acute Plan to address problem: Continue pulmonology recommendations, patient seems to be at baseline no acute respiratory distress DVT prophylaxis Current Visit: Yes Status: Acute Plan to address problem: Patient currently on anticoagulation with Lovenox. Full code status Current Visit: Yes Status: Acute Plan to address problem: Patient is full code. Disposition: Patient to continue remdesivir treatment and steroids. History Interval history: 12/13/2020: Patient seen and examined, states that her breathing is improved and is back at baseline. Informed patient that she does have Covid. 12/14/2020: Patient seen and examined, was complaining of left arm pain because of IV. There was a question if she received the entire dose of remdesivir last night. Overall the patient is doing well, breathing is at baseline. No nausea or vomiting tolerating diet. Hospitalist Physical - Physical exam Narrative exam: General appearance: Morbid obesity, no acute distress, well-nourished EENT: PERRL, EOM intact, hearing intact, clear oral mucosa Neck: Present: supple, normal ROM tracheostomy present Respiratory: Tracheostomy present, 6 L of oxygen, patient without any re spiratory distress, due to patient's habitus, distant breath sounds Cardiovascular: Regular rate/rhythm, Normal S1 & S2. No gallop, rub Extremities: no ischemia, No edema, normal temperature, normal color, Full ROM left arm without any swelling, tender to palpation into the antecubital area Abdominal: Large pannus, soft, no tenderness, non-distended, normal bowel sounds Integumentary: Present: clear, warm, dry no wounds, no erythema noted Psychiatric: appropriate mood/affect, intact judgment & insight Neurologic: CNII-XII intact, moves all extremities, no sensory or motor abnormalities - Constitutional Vitals: Temp Pulse Resp BP Pulse Ox 99.4 F 64 20 129/54 98 12/14/20 04:51 12/14/20 07:55 12/14/20 07:55 12/14/20 04:51 12/14/20 09:20 General appearance: Present: mild distress, obese HEART Score - HEART Score EKG: Non-specific Age: < 45 Risk factors: 1-2 risk factors Troponin: Troponin T < 0.010 ng/mL (0.00-0.029) 12/12/20 02:40 Troponin: < normal limit Results - Labs CBC & Chem 7: 12/13/20 05:06 12/13/20 05:06 Labs: Laboratory Last Values WBC 6.6 K/mm3 (4.5-11.0) 12/13/20 05:06 RBC 3.35 M/mm3 (3.65-5.03) L 12/13/20 05:06 Hgb 8.0 gm/dl (10.1-14.3) L 12/13/20 05:06 Hct 26.0 % (30.3-42.9) L 12/13/20 05:06 MCV 78 fl (79-97) L 12/13/20 05:06 MCH 24 pg (28-32) L 12/13/20 05:06 MCHC 31 % (30-34) 12/13/20 05:06 RDW 19.0 % (13.2-15.2) H 12/13/20 05:06 Plt Count 335 K/mm3 (140-440) 12/13/20 05:06 Lymph % (Auto) 24.6 % (13.4-35.0) 12/13/20 05:06 Mobile % (Auto) 10.0 % (0.0-7.3) H 12/13/20 05:06 Eos % (Auto) 2.6 % (0.0-4.3) 12/13/20 05:06 Baso % (Auto) 0.4 % (0.0-1.8) 12/13/20 05:06 Lymph # (Auto) 1.6 K/mm3 (1.2-5.4) 12/13/20 05:06 Mobile # (Auto) 0.7 K/mm3 (0.0-0.8) 12/13/20 05:06 Eos # (Auto) 0.2 K/mm3 (0.0-0.4) 12/13/20 05:06 Baso # (Auto) 0.0 K/mm3 (0.0-0.1) 12/13/20 05:06 Seg Neutrophils % 62.4 % (40.0-70.0) 12/13/20 05:06 Seg Neutrophils # 4.1 K/mm3 (1.8-7.7) 12/13/20 05:06 PT 14.5 Sec. (12.2-14.9) 12/13/20 05:06 INR 1.07 (0.87-1.13) 12/13/20 05:06 D-Dimer 454.72 ng/mlDDU (0-234) H 12/12/20 02:38 Sodium 137 mmol/L (137-145) 12/13/20 05:06 Potassium 3.8 mmol/L (3.6-5.0) 12/13/20 05:06 Chloride 92.3 mmol/L (98-107) L 12/13/20 05:06 Carbon Dioxide 41 mmol/L (22-30) H* 12/13/20 05:06 Anion Gap 8 mmol/L 12/13/20 05:06 BUN 8 mg/dL (7-17) 12/13/20 05:06 Creatinine 0.6 mg/dL (0.6-1.2) 12/13/20 05:06 Estimated GFR > 60 ml/min 12/13/20 05:06 BUN/Creatinine Ratio 13 % 12/13/20 05:06 Glucose 78 mg/dL (65-100) 12/13/20 05:06 Calcium 8.1 mg/dL (8.4-10.2) L 12/13/20 05:06 Ferritin 50.2 ng/mL (10.0-200.0) 12/12/20 02:38 Lactate Dehydrogenase 219 units/L (91-180) H 12/12/20 02:38 Troponin T < 0.010 ng/mL (0.00-0.029) 12/12/20 02:40 C-Reactive Protein 1.50 mg/dL (0.00-1.30) H 12/12/20 02:38 NT-Pro-B Natriuret Pep 412.9 pg/mL (0-450) 12/12/20 01:54 Procalcitonin < 0.05 ng/mL (<0.15) 12/12/20 02:38 Coronavirus (PCR) Positive (Negative) A 12/12/20 Unknown Guevara/IV: Voiding Method Toilet Active Medications - Current Medications Current Medications: Generic Name Dose Route Start Last Admin Trade Name Freq PRN Reason Stop Dose Admin Acetaminophen 650 mg 12/12/20 04:13 Acetaminophen 325 Mg Tab PO Q6H PRN Pain MILD(1-3)/Fever >100.5/SIERRA Albuterol/Ipratropium 1 ampul 12/12/20 14:00 12/14/20 07:54 Ipratropium/Albuterol Sulfate 3 Ml Ampul.Neb IH 1 ampul TIDRT RADHA Administration Benzonatate 100 mg 12/12/20 04:22 Benzonatate 100 Mg Cap PO TID PRN Cough Dexamethasone 8 mg 12/13/20 10:00 12/14/20 09:47 Dexamethasone 4 Mg Tab PO 8 mg Q12HR RADHA Administration Diphenhydramine HCl 50 mg 12/12/20 04:22 Diphenhydramine 25 Mg Cap PO Q6H PRN Itching REMDESIVIR 200 mg/ Sodium 250 mls @ 500 mls/hr 12/14/20 14:00 Chloride IV 12/14/20 14:29 ONCE ONE REMDESIVIR 100 mg/ Sodium 250 mls @ 500 mls/hr 12/15/20 21:00 Chloride IV 12/18/20 21:29 Q24HR@2100 RADHA Magnesium Hydroxide 30 ml 12/12/20 04:13 Magnesium Hydroxide (Mom) Oral Liqd Udc PO Q4H PRN Constipation Ondansetron HCl 4 mg 12/12/20 04:13 Ondansetron 4 Mg/2 Ml Inj IV Q8H PRN Nausea And Vomiting Pantoprazole Sodium 40 mg 12/12/20 10:00 12/14/20 09:47 Pantoprazole 40 Mg Tab PO 40 mg QDAY RADHA Administration Sodium Chloride 10 ml 12/12/20 10:00 12/14/20 09:47 Sodium Chloride 0.9% 10 Ml Flush Syringe IV 10 ml BID RADHA Administration Sodium Chloride 10 ml 12/12/20 04:13 Sodium Chloride 0.9% 10 Ml Flush Syringe IV PRN PRN LINE FLUSH Sodium Chloride 50 ml 12/14/20 14:00 Sodium Chloride 0.9% 50 Ml Ivpb IV 12/18/20 21:01 Q24HR@2100 RADHA Nutrition/Malnutrition Assess - Dietary Evaluation Nutrition/Malnutrition Findings: Nutrition Notes Start: 12/12/20 12:19 Freq: Status: Active Protocol: Document 12/13/20 12:20 (Rec: 12/13/20 12:23 [id number]) Nutrition Notes Initial or Follow up Brief Note Current Diagnosis COPD,Hypertension,Heart Failure,Respiratory Failure Other Pertinent Diagnosis COVID(+) Current Diet Cardiac Subjective/Other Information FU for diet education. Pt reports likely to get bariatric surgery at [facility]. Pt is eating 75-100% of meals. Pt asked for nutritional handout but denied diet education. Left handout in chart. Nutrition Intervention Teaching Recipient Patient Learning Readiness Good Teaching Methods Handout Response to Teaching Verbalize understanding Education Handouts Provided General Healthful Nurition Barriers to Learning No Barriers RD phone number provided Yes Patient aware of follow up options Yes Revisit per MD consult or patient Sign Off request:
[2020-12-14 10:23] LABS: Alanine Aminotransferase 5 units/L (7-56); Albumin 3.9 g/dL (3.9-5); BUN/Creatinine Ratio 20; Blood Urea Nitrogen 10 mg/dL (7-17); Calcium 9.1 mg/dL (8.4-10.2); Hemolysis Index 1
--- NOTE | 2020-12-14 13:07 | Progress Note ---
Assessment and Plan 25 y/o female with acute on chronic respiratory failure, trached and morbidly, morbidly obese. 12/14/20: Continue steroids at higher doses. Continue Remdesivir. hopeful discharge soon. 12/13/20: STarted patient on decadron 8 BID. Suggest ID consult to see if remdesivir and actemra are warranted. Need to find out how much O2 patient is on at home. Doubt patient can prone, but if so, would suggest this as tolerated. Very very guarded to poor prognosis given morbid obesity. However if her oxygen requirement does not increase in the next 24-48 hours, would suggest discharge to home pending on her arrangement and if she oxygen already set up there for use with her chronic trach which she likely does. 1. Follow up COVID 2. Weight loss (needs bariatric surgery) 3. Indefinite trach 4. Ok with nebs but if COVID positive will need puffer therapy and steroids. Subjective Date of service: 12/14/20 Interval history: No acute events. STable on 5 liters Trach Collar. Objective Vital Signs - 12hr 12/14/20 12/14/20 12/14/20 04:51 07:55 09:20 Temperature 99.4 F Pulse Rate 64 Pulse Rate [ 64 Bilateral Throughout] Respiratory 20 Rate Respiratory 20 Rate [Bilateral Throughout] Blood Pressure 129/54 O2 Sat by Pulse 99 98 Oximetry CBC and BMP: 12/13/20 05:06 12/14/20 09:48 ABG, PT/INR, D-dimer: PT/INR, D-dimer PT 14.5 Sec. (12.2-14.9) 12/13/20 05:06 INR 1.07 (0.87-1.13) 12/13/20 05:06 D-Dimer 454.72 ng/mlDDU (0-234) H 12/12/20 02:38 Abnormal lab findings: Abnormal Labs 12/12/20 12/12/20 12/12/20 00:42 00:42 02:38 RBC 3.24 L Hgb 8.2 L Hct 25.1 L MCV 78 L MCH 25 L RDW 19.2 H Lymph % (Auto) 12.[address] % (Auto) 7.5 H Seg Neutrophils % 75.6 H D-Dimer 454.72 H Sodium Chloride 96.0 L Carbon Dioxide 37 H BUN 6 L Creatinine Glucose Calcium ALT Lactate Dehydrogenase C-Reactive Protein Coronavirus (PCR) 12/12/20 12/12/20 12/13/20 02:38 Unknown 05:06 RBC 3.35 L Hgb 8.0 L Hct 26.0 L MCV 78 L MCH 24 L RDW 19.0 H Lymph % (Auto) [place] % (Auto) 10.0 H Seg Neutrophils % D-Dimer Sodium Chloride Carbon Dioxide BUN Creatinine Glucose 125 H Calcium ALT Lactate Dehydrogenase 219 H C-Reactive Protein 1.50 H Coronavirus (PCR) Positive A 12/13/20 12/14/20 05:06 09:48 RBC Hgb Hct MCV MCH RDW Lymph % (Auto) [place] % (Auto) Seg Neutrophils % D-Dimer Sodium 136 L Chloride 92.3 L 93.4 L Carbon Dioxide 41 H* 37 H BUN Creatinine 0.5 L Glucose 123 H Calcium 8.1 L ALT 5 L Lactate Dehydrogenase C-Reactive Protein Coronavirus (PCR)
--- NOTE | 2020-12-14 13:40 | Progress Note ---
Assessment and Plan Cultures: COVID PCR: positive A/P: 25 yo F PMHx morbid obesity (BMI 94), chronic respiratory failure on O2, asthma, diastolic heart failure, PE #Acute on chronic respiratory failure: she is on chronic trach and O2 at home, unclear baseline at present. As she has minimally elevated inflammatory markers and atypical lung findings I'm unsure how much a role the COVID is playing into her current presentation. #COVID-19: no PNA on CXR and afebrile, however given her size and co-morbidities it is difficult to tell what exactly is driving her presentation. #Morbid obesity: with several associated co-morbidities Recs: -Continue dexamethasone. Ok with higher dosing considering her weight. -While unsure of role of COVID, recommend remdesivir as she has several comorbidities that could predispose her to a worse outcome -Not enough inflammation to warrant Actemra at the present time. -Monitor d-dimer as she has a history of PE as is unlikely to be able to fit into the CT scanner -Proning if able. -Stopped antibiotics due to normal procalcitonin. Thank you for the consult, we will continue to follow. Geovanna Matos MD [facility], [place], [facility] ([facility] O: [phone] F: [phone] Subjective Date of service: 12/14/20 Interval history: Afebrile, normal white count. No acute change. Objective - Exam Narrative Exam: Physical exam deferred to reduce risk of transmission of COVID-19. Please refer to primary team's note. - Constitutional Vitals: Vital Signs Temp Pulse Resp BP Pulse Ox 99.4 F 64 20 129/54 98 12/14/20 04:51 12/14/20 07:55 12/14/20 07:55 12/14/20 04:51 12/14/20 09:20 Temperature -Last 24 Hours Temperature 99.4 F Temperature 97.7 F - Labs CBC & Chem 7: 12/13/20 05:06 12/14/20 09:48 Labs: Abnormal lab results 12/14/20 Range/Units 09:48 Sodium 136 L (137-145) mmol/L Chloride 93.4 L (98-107) mmol/L Carbon Dioxide 37 H (22-30) mmol/L Creatinine 0.5 L (0.6-1.2) mg/dL Glucose 123 H (65-100) mg/dL ALT 5 L (7-56) units/L
[2020-12-14] MEDS ORDERED: REMDESIVIR 200 MG in SODIUM CHLORIDE 0.9% 250ML 250 ML IV ONE (14:00)
[2020-12-14] MEDS: REMDESIVIR 200 MG in SODIUM CHLORIDE 0.9% 250ML 250 ML IV ONE ×2 (15:37→16:43)
[2020-12-14] MEDS: SODIUM CHLORIDE 0.9% 50 ML IVPB IV SCH (16:42)
[2020-12-15 08:12] LABS: Albumin 3.9 g/dL (3.9-5); Blood Urea Nitrogen 14 mg/dL (7-17); Calcium 8.8 mg/dL (8.4-10.2); Hemolysis Index 0
[2020-12-15] MEDS: IPRATROPIUM/ALBUTEROL SULFATE 3 ML AMPUL.NEB IH SCH ×3 (08:30→21:19)
[2020-12-15 09:08] LABS: Alanine Aminotransferase < 5 units/L (7-56); BUN/Creatinine Ratio 28
--- NOTE | 2020-12-15 09:54 | Progress Note ---
Assessment and Plan Assessment and plan: Assessment and Plan: 25-year-old -[place] female who is trach dependent who presents with acute respiratory failure in the context of Covid infection. - Patient Problems Acute and chronic respiratory failure Current Visit: Yes Status: Acute Plan to address problem: Possibly secondary to pulmonary edema versus underlying pneumonia. Patient is also trach dependent. Patient started on steroids Continue oxygen supplementation, patient seems to be at baseline Covid pneumonia Pulmonology and infectious disease consulted Patient started on steroids and remdesivir Community acquired pneumonia Current Visit: Yes Status: Acute Plan to address problem: Procalcitonin low, infectious disease discontinued IV antibiotics Morbidly obese Current Visit: Yes Status: Acute Plan to address problem: Request dietary consult. Tracheostomy dependence Current Visit: Yes Status: Acute Plan to address problem: Continue pulmonology recommendations, patient seems to be at baseline no acute respiratory distress DVT prophylaxis Current Visit: Yes Status: Acute Plan to address problem: Patient currently on anticoagulation with Lovenox. Full code status Current Visit: Yes Status: Acute Plan to address problem: Patient is full code. Disposition: Patient to continue remdesivir treatment and steroids. History Interval history: 12/13/2020: Patient seen and examined, states that her breathing is improved and is back at baseline. Informed patient that she does have Covid. 12/14/2020: Patient seen and examined, was complaining of left arm pain because of IV. There was a question if she received the entire dose of remdesivir last night. Overall the patient is doing well, breathing is at baseline. No nausea or vomiting tolerating diet. 12/15/2020: Patient examined, left arm is improved, no nausea vomiting breathing is at baseline. Hospitalist Physical - Physical exam Narrative exam: General appearance: Morbid obesity, no acute distress, well-nourished EENT: PERRL, EOM intact, hearing intact, clear oral mucosa Neck: Present: supple, normal ROM tracheostomy present Respiratory: Tracheostomy present, 6 L of oxygen, patient without any respirat ory distress, due to patient's habitus, distant breath sounds Cardiovascular: Regular rate/rhythm, Normal S1 & S2. No gallop, rub Abdominal: Large pannus, soft, no tenderness, non-distended, normal bowel sounds Integumentary: Present: clear, warm, dry no wounds, no erythema noted Psychiatric: appropriate mood/affect, intact judgment & insight Neurologic: CNII-XII intact, moves all extremities, no sensory or motor abnormalities - Constitutional Vitals: Temp Pulse Resp BP Pulse Ox 98.8 F 50 L 20 128/49 99 12/15/20 04:56 12/15/20 04:56 12/15/20 04:56 12/15/20 04:56 12/15/20 04:56 General appearance: Present: mild distress, obese HEART Score - HEART Score EKG: Non-specific Age: < 45 Risk factors: 1-2 risk factors Troponin: Troponin T < 0.010 ng/mL (0.00-0.029) 12/12/20 02:40 Troponin: < normal limit Results - Labs CBC & Chem 7: 12/13/20 05:06 12/15/20 07:15 Labs: Laboratory Last Values WBC 6.6 K/mm3 (4.5-11.0) 12/13/20 05:06 RBC 3.35 M/mm3 (3.65-5.03) L 12/13/20 05:06 Hgb 8.0 gm/dl (10.1-14.3) L 12/13/20 05:06 Hct 26.0 % (30.3-42.9) L 12/13/20 05:06 MCV 78 fl (79-97) L 12/13/20 05:06 MCH 24 pg (28-32) L 12/13/20 05:06 MCHC 31 % (30-34) 12/13/20 05:06 RDW 19.0 % (13.2-15.2) H 12/13/20 05:06 Plt Count 335 K/mm3 (140-440) 12/13/20 05:06 Lymph % (Auto) 24.6 % (13.4-35.0) 12/13/20 05:06 [place] % (Auto) 10.0 % (0.0-7.3) H 12/13/20 05:06 Eos % (Auto) 2.6 % (0.0-4.3) 12/13/20 05:06 Baso % (Auto) 0.4 % (0.0-1.8) 12/13/20 05:06 Lymph # (Auto) 1.6 K/mm3 (1.2-5.4) 12/13/20 05:06 [place] # (Auto) 0.7 K/mm3 (0.0-0.8) 12/13/20 05:06 Eos # (Auto) 0.2 K/mm3 (0.0-0.4) 12/13/20 05:06 Baso # (Auto) 0.0 K/mm3 (0.0-0.1) 12/13/20 05:06 Seg Neutrophils % 62.4 % (40.0-70.0) 12/13/20 05:06 Seg Neutrophils # 4.1 K/mm3 (1.8-7.7) 12/13/20 05:06 PT 14.5 Sec. (12.2-14.9) 12/13/20 05:06 INR 1.07 (0.87-1.13) 12/13/20 05:06 D-Dimer 454.72 ng/mlDDU (0-234) H 12/12/20 02:38 Sodium 138 mmol/L (137-145) 12/15/20 07:15 Potassium 4.6 mmol/L (3.6-5.0) 12/15/20 07:15 Chloride 96.4 mmol/L (98-107) L 12/15/20 07:15 Carbon Dioxide 38 mmol/L (22-30) H 12/15/20 07:15 Anion Gap 8 mmol/L 12/15/20 07:15 BUN 14 mg/dL (7-17) 12/15/20 07:15 Creatinine 0.5 mg/dL (0.6-1.2) L 12/15/20 07:15 Estimated GFR > 60 ml/min 12/15/20 07:15 BUN/Creatinine Ratio 28 % 12/15/20 07:15 Glucose 114 mg/dL (65-100) H 12/15/20 07:15 Calcium 8.8 mg/dL (8.4-10.2) 12/15/20 07:15 Ferritin 50.2 ng/mL (10.0-200.0) 12/12/20 02:38 Total Bilirubin 0.20 mg/dL (0.1-1.2) 12/15/20 07:15 AST 8 units/L (5-40) 12/15/20 07:15 ALT < 5 units/L (7-56) L 12/15/20 07:15 Alkaline Phosphatase 62 units/L (35-129) 12/15/20 07:15 Lactate Dehydrogenase 219 units/L (91-180) H 12/12/20 02:38 Troponin T < 0.010 ng/mL (0.00-0.029) 12/12/20 02:40 C-Reactive Protein 1.50 mg/dL (0.00-1.30) H 12/12/20 02:38 NT-Pro-B Natriuret Pep 412.9 pg/mL (0-450) 12/12/20 01:54 Total Protein 7.6 g/dL (6.3-8.2) 12/15/20 07:15 Albumin 3.9 g/dL (3.9-5) 12/15/20 07:15 Albumin/Globulin Ratio 1.1 % 12/15/20 07:15 Procalcitonin < 0.05 ng/mL (<0.15) 12/12/20 02:38 Coronavirus (PCR) Positive (Negative) A 12/12/20 Unknown Guevara/IV: Voiding Method Toilet Active Medications - Current Medications Current Medications: Generic Name Dose Route Start Last Admin Trade Name Freq PRN Reason Stop Dose Admin Acetaminophen 650 mg 12/12/20 04:13 Acetaminophen 325 Mg Tab PO Q6H PRN Pain MILD(1-3)/Fever >100.5/SIERRA Albuterol/Ipratropium 1 ampul 12/12/20 14:00 12/15/20 08:30 Ipratropium/Albuterol Sulfate 3 Ml Ampul.Neb IH 1 ampul TIDRT RADHA Administration Benzonatate 100 mg 12/12/20 04:22 Benzonatate 100 Mg Cap PO TID PRN Cough Dexamethasone 8 mg 12/13/20 10:00 12/14/20 22:38 Dexamethasone 4 Mg Tab PO 8 mg Q12HR RADHA Administration Diphenhydramine HCl 50 mg 12/12/20 04:22 Diphenhydramine 25 Mg Cap PO Q6H PRN Itching REMDESIVIR 100 mg/ Sodium 250 mls @ 500 mls/hr 12/15/20 21:00 Chloride IV 12/18/20 21:29 Q24HR@2100 RADHA Magnesium Hydroxide 30 ml 12/12/20 04:13 Magnesium Hydroxide (Mom) Oral Liqd Udc PO Q4H PRN Constipation Ondansetron HCl 4 mg 12/12/20 04:13 Ondansetron 4 Mg/2 Ml Inj IV Q8H PRN Nausea And Vomiting Pantoprazole Sodium 40 mg 12/12/20 10:00 12/14/20 09:47 Pantoprazole 40 Mg Tab PO 40 mg QDAY RADHA Administration Sodium Chloride 10 ml 12/12/20 10:00 12/14/20 22:38 Sodium Chloride 0.9% 10 Ml Flush Syringe IV 10 ml BID RADHA Administration Sodium Chloride 10 ml 12/12/20 04:13 Sodium Chloride 0.9% 10 Ml Flush Syringe IV PRN PRN LINE FLUSH Sodium Chloride 50 ml 12/14/20 14:00 12/14/20 16:42 Sodium Chloride 0.9% 50 Ml Ivpb IV 12/18/20 21:01 50 ml Q24HR@2100 RADHA Administration Nutrition/Malnutrition Assess - Dietary Evaluation Nutrition/Malnutrition Findings: Nutrition Notes Start: 12/12/20 12:19 Freq: Status: Active Protocol: Document 12/13/20 12:20 (Rec: 12/13/20 12:23 [id number]) Nutrition Notes Initial or Follow up Brief Note Current Diagnosis COPD,Hypertension,Heart Failure,Respiratory Failure Other Pertinent Diagnosis COVID(+) Current Diet Cardiac Subjective/Other Information FU for diet education. Pt reports likely to get bariatric surgery at [facility]. Pt is eating 75-100% of meals. Pt asked for nutritional handout but denied diet education. Left handout in chart. Nutrition Intervention Teaching Recipient Patient Learning Readiness Good Teaching Methods Handout Response to Teaching Verbalize understanding Education Handouts Provided General Healthful Nurition Barriers to Learning No Barriers RD phone number provided Yes Patient aware of follow up options Yes Revisit per MD consult or patient Sign Off request:
[2020-12-15] MEDS: DEXAMETHASONE 4 MG TAB PO SCH ×2 (10:15→23:22)
[2020-12-15] MEDS: PANTOPRAZOLE 40 MG TAB PO SCH (10:15)
--- NOTE | 2020-12-15 13:25 | Progress Note ---
Assessment and Plan Cultures: COVID PCR: positive A/P: 25 yo F PMHx morbid obesity (BMI 94), chronic respiratory failure on O2, asthma, diastolic heart failure, PE #Acute on chronic respiratory failure: she is on chronic trach and O2 at home, unclear baseline at present. As she has minimally elevated inflammatory markers and atypical lung findings I'm unsure how much a role the COVID is playing into her current presentation. #COVID-19: no PNA on CXR and afebrile, however given her size and co-morbidities it is difficult to tell what exactly is driving her presentation. #Morbid obesity: with several associated co-morbidities Recs: -Continue dexamethasone. Ok with higher dosing considering her weight. -While unsure of role of COVID, recommend remdesivir as she has several comorbidities that could predispose her to a worse outcome -Monitor d-dimer as she has a history of PE as is unlikely to be able to fit into the CT scanner -Proning if able. Thank you for the consult, we will continue to follow. Geovanna Matos MD [facility] ([facility]) O: [phone] F: [phone] Subjective Date of service: 12/15/20 Interval history: Afebrile, normal white count. remains on trach collar. Objective - Exam Narrative Exam: Physical exam deferred to reduce risk of transmission of COVID-19. Please refer to primary team's note. - Constitutional Vitals: Vital Signs Temp Pulse Resp BP Pulse Ox 97.9 F 62 24 122/53 100 12/15/20 12:15 12/15/20 12:15 12/15/20 12:15 12/15/20 12:15 12/15/20 12:15 Temperature -Last 24 Hours Temperature 97.9 F Temperature 98.8 F Temperature 98.4 F Temperature 98.5 F - Labs CBC & Chem 7: 12/13/20 05:06 12/15/20 07:15 Labs: Abnormal lab results 12/15/20 Range/Units 07:15 Chloride 96.4 L (98-107) mmol/L Carbon Dioxide 38 H (22-30) mmol/L Creatinine 0.5 L (0.6-1.2) mg/dL Glucose 114 H (65-100) mg/dL ALT < 5 L (7-56) units/L
[2020-12-15] MEDS: SODIUM CHLORIDE 0.9% 50 ML IVPB IV SCH (23:22)
[2020-12-15] MEDS: REMDESIVIR 100 MG in SODIUM CHLORIDE 0.9% 250ML 250 ML IV SCH (23:22)
[2020-12-16] MEDS: IPRATROPIUM/ALBUTEROL SULFATE 3 ML AMPUL.NEB IH SCH (07:52)
[2020-12-16] MEDS: PANTOPRAZOLE 40 MG TAB PO SCH (09:26)
[2020-12-16] MEDS: DEXAMETHASONE 4 MG TAB PO SCH ×2 (09:26→22:19)
[2020-12-16 10:04] LABS: Alanine Aminotransferase 6 units/L (7-56); Albumin 3.8 g/dL (3.9-5); Blood Urea Nitrogen 16 mg/dL (7-17); Calcium 8.6 mg/dL (8.4-10.2); Hemolysis Index 0
[2020-12-16 10:15] LABS: BUN/Creatinine Ratio 27
--- NOTE | 2020-12-16 10:33 | Progress Note ---
Assessment and Plan Assessment and plan: Assessment and Plan: 25-year-old -[place] female who is trach dependent who presents with acute respiratory failure in the context of Covid infection. - Patient Problems Acute and chronic respiratory failure Current Visit: Yes Status: Acute Plan to address problem: Possibly secondary to pulmonary edema versus underlying pneumonia. Patient is also trach dependent. Patient started on steroids Continue oxygen supplementation, patient seems to be at baseline Covid pneumonia Pulmonology and infectious disease consulted Patient started on steroids and remdesivir Morbidly obese Current Visit: Yes Status: Acute Plan to address problem: Request dietary consult. Tracheostomy dependence Current Visit: Yes Status: Acute Plan to address problem: Continue pulmonology recommendations, patient seems to be at baseline no acute respiratory distress DVT prophylaxis Current Visit: Yes Status: Acute Plan to address problem: Patient currently on anticoagulation with Lovenox. Full code status Current Visit: Yes Status: Acute Plan to address problem: Patient is full code. Disposition: Patient to continue remdesivir treatment and steroids. History Interval history: 12/13/2020: Patient seen and examined, states that her breathing is improved and is back at baseline. Informed patient that she does have Covid. 12/14/2020: Patient seen and examined, was complaining of left arm pain because of IV. There was a question if she received the entire dose of remdesivir last night. Overall the patient is doing well, breathing is at baseline. No nausea or vomiting tolerating diet. 12/15/2020: Patient examined, left arm is improved, no nausea vomiting breathing is at baseline. 12/16/2020: Patient states that she has no respiratory distress. No nausea or vomiting. Hospitalist Physical - Physical exam Narrative exam: General appearance: Morbid obesity, no acute distress, well-nourished EENT: PERRL, EOM intact, hearing intact, clear oral mucosa Neck: Present: supple, normal ROM tracheostomy present Respiratory: Tracheostomy present, 6 L of oxygen, no respiratory distress Cardiovascular: Regular rate/rhythm, Normal S1 & S2. No gallop, rub Abdominal: Large pannus, soft, no tenderness, non-distended, normal bowel sounds Integumentary: Present: clear, warm, dry no wounds, no erythema noted, no swelling in left arm Psychiatric: appropriate mood/affect, intact judgment & insight Neurologic: CNII-XII intact, moves all extremities, no sensory or motor abnormalities - Constitutional Vitals: Temp Pulse Resp BP Pulse Ox 98.5 F 86 18 120/57 97 12/16/20 04:35 12/16/20 07:52 12/16/20 07:52 12/16/20 04:35 12/16/20 08:14 General appearance: Present: mild distress, obese HEART Score - HEART Score EKG: Non-specific Age: < 45 Risk factors: 1-2 risk factors Troponin: Troponin T < 0.010 ng/mL (0.00-0.029) 12/12/20 02:40 Troponin: < normal limit Results - Labs CBC & Chem 7: 12/13/20 05:06 12/16/20 07:21 Labs: Laboratory Last Values WBC 6.6 K/mm3 (4.5-11.0) 12/13/20 05:06 RBC 3.35 M/mm3 (3.65-5.03) L 12/13/20 05:06 Hgb 8.0 gm/dl (10.1-14.3) L 12/13/20 05:06 Hct 26.0 % (30.3-42.9) L 12/13/20 05:06 MCV 78 fl (79-97) L 12/13/20 05:06 MCH 24 pg (28-32) L 12/13/20 05:06 MCHC 31 % (30-34) 12/13/20 05:06 RDW 19.0 % (13.2-15.2) H 12/13/20 05:06 Plt Count 335 K/mm3 (140-440) 12/13/20 05:06 Lymph % (Auto) 24.6 % (13.4-35.0) 12/13/20 05:06 [place] % (Auto) 10.0 % (0.0-7.3) H 12/13/20 05:06 Eos % (Auto) 2.6 % (0.0-4.3) 12/13/20 05:06 Baso % (Auto) 0.4 % (0.0-1.8) 12/13/20 05:06 Lymph # (Auto) 1.6 K/mm3 (1.2-5.4) 12/13/20 05:06 [place] # (Auto) 0.7 K/mm3 (0.0-0.8) 12/13/20 05:06 Eos # (Auto) 0.2 K/mm3 (0.0-0.4) 12/13/20 05:06 Baso # (Auto) 0.0 K/mm3 (0.0-0.1) 12/13/20 05:06 Seg Neutrophils % 62.4 % (40.0-70.0) 12/13/20 05:06 Seg Neutrophils # 4.1 K/mm3 (1.8-7.7) 12/13/20 05:06 PT 14.5 Sec. (12.2-14.9) 12/13/20 05:06 INR 1.07 (0.87-1.13) 12/13/20 05:06 D-Dimer 454.72 ng/mlDDU (0-234) H 12/12/20 02:38 Sodium 140 mmol/L (137-145) 12/16/20 07:21 Potassium 5.0 mmol/L (3.6-5.0) 12/16/20 07:21 Chloride 98.1 mmol/L (98-107) 12/16/20 07:21 Carbon Dioxide 35 mmol/L (22-30) H 12/16/20 07:21 Anion Gap 12 mmol/L 12/16/20 07:21 BUN 16 mg/dL (7-17) 12/16/20 07:21 Creatinine 0.6 mg/dL (0.6-1.2) 12/16/20 07:21 Estimated GFR > 60 ml/min 12/16/20 07:21 BUN/Creatinine Ratio 27 % 12/16/20 07:21 Glucose 86 mg/dL (65-100) 12/16/20 07:21 Calcium 8.6 mg/dL (8.4-10.2) 12/16/20 07:21 Ferritin 50.2 ng/mL (10.0-200.0) 12/12/20 02:38 Total Bilirubin 0.20 mg/dL (0.1-1.2) 12/16/20 07:21 AST 5 units/L (5-40) 12/16/20 07:21 ALT 6 units/L (7-56) L 12/16/20 07:21 Alkaline Phosphatase 56 units/L (35-129) 12/16/20 07:21 Lactate Dehydrogenase 219 units/L (91-180) H 12/12/20 02:38 Troponin T < 0.010 ng/mL (0.00-0.029) 12/12/20 02:40 C-Reactive Protein 1.50 mg/dL (0.00-1.30) H 12/12/20 02:38 NT-Pro-B Natriuret Pep 412.9 pg/mL (0-450) 12/12/20 01:54 Total Protein 6.7 g/dL (6.3-8.2) 12/16/20 07:21 Albumin 3.8 g/dL (3.9-5) L 12/16/20 07:21 Albumin/Globulin Ratio 1.3 % 12/16/20 07:21 Procalcitonin < 0.05 ng/mL (<0.15) 12/12/20 02:38 Coronavirus (PCR) Positive (Negative) A 12/12/20 Unknown Guevara/IV: Voiding Method Toilet Active Medications - Current Medications Current Medications: Generic Name Dose Route Start Last Admin Trade Name Freq PRN Reason Stop Dose Admin Acetaminophen 650 mg 12/12/20 04:13 Acetaminophen 325 Mg Tab PO Q6H PRN Pain MILD(1-3)/Fever >100.5/SIERRA Albuterol/Ipratropium 1 ampul 12/12/20 14:00 12/16/20 07:52 Ipratropium/Albuterol Sulfate 3 Ml Ampul.Neb IH 1 ampul TIDRT RADHA Administration Benzonatate 100 mg 12/12/20 04:22 Benzonatate 100 Mg Cap PO TID PRN Cough Dexamethasone 8 mg 12/13/20 10:00 12/16/20 09:26 Dexamethasone 4 Mg Tab PO 8 mg Q12HR RADHA Administration Diphenhydramine HCl 50 mg 12/12/20 04:22 Diphenhydramine 25 Mg Cap PO Q6H PRN Itching REMDESIVIR 100 mg/ Sodium 250 mls @ 500 mls/hr 12/15/20 21:00 12/16/20 03:04 Chloride IV 12/18/20 21:29 Infused Q24HR@2100 RADHA Infusion Magnesium Hydroxide 30 ml 12/12/20 04:13 Magnesium Hydroxide (Mom) Oral Liqd Udc PO Q4H PRN Constipation Ondansetron HCl 4 mg 12/12/20 04:13 Ondansetron 4 Mg/2 Ml Inj IV Q8H PRN Nausea And Vomiting Pantoprazole Sodium 40 mg 12/12/20 10:00 12/16/20 09:26 Pantoprazole 40 Mg Tab PO 40 mg QDAY RADHA Administration Sodium Chloride 10 ml 12/12/20 10:00 12/16/20 09:27 Sodium Chloride 0.9% 10 Ml Flush Syringe IV 10 ml BID RADHA Administration Sodium Chloride 10 ml 12/12/20 04:13 Sodium Chloride 0.9% 10 Ml Flush Syringe IV PRN PRN LINE FLUSH Sodium Chloride 50 ml 12/14/20 14:00 12/15/20 23:22 Sodium Chloride 0.9% 50 Ml Ivpb IV 12/18/20 21:01 50 ml Q24HR@2100 RADHA Administration Nutrition/Malnutrition Assess - Dietary Evaluation Nutrition/Malnutrition Findings: Nutrition Notes Start: 12/12/20 12:19 Freq: Status: Active Protocol: Document 12/13/20 12:20 (Rec: 12/13/20 12:23 [id number]) Nutrition Notes Initial or Follow up Brief Note Current Diagnosis COPD,Hypertension,Heart Failure,Respiratory Failure Other Pertinent Diagnosis COVID(+) Current Diet Cardiac Subjective/Other Information FU for diet education. Pt reports likely to get bariatric surgery at [place]. Pt is eating 75-100% of meals. Pt asked for nutritional handout but denied diet education. Left handout in chart. Nutrition Intervention Teaching Recipient Patient Learning Readiness Good Teaching Methods Handout Response to Teaching Verbalize understanding Education Handouts Provided General Healthful Nurition Barriers to Learning No Barriers RD phone number provided Yes Patient aware of follow up options Yes Revisit per MD consult or patient Sign Off request:
--- NOTE | 2020-12-16 11:10 | Progress Note ---
Assessment and Plan 25 y/o female with acute on chronic respiratory failure, trached and morbidly, morbidly obese. 12/16/20: Continue steroids, total of 10 days. Continue Remdesivir. Hopeful discharge soon 12/14/20: Continue steroids at higher doses. Continue Remdesivir. hopeful discharge soon. 12/13/20: STarted patient on decadron 8 BID. Suggest ID consult to see if remdesivir and actemra are warranted. Need to find out how much O2 patient is on at home. Doubt patient can prone, but if so, would suggest this as tolerated. Very very guarded to poor prognosis given morbid obesity. However if her oxygen requirement does not increase in the next 24-48 hours, would suggest discharge to home pending on her arrangement and if she oxygen already set up there for use with her chronic trach which she likely does. 1. Follow up COVID 2. Weight loss (needs bariatric surgery) 3. Indefinite trach 4. Ok with nebs but if COVID positive will need puffer therapy and steroids. Subjective Date of service: 12/16/20 Interval history: No acute events. Stable on 5 liters TC. Objective Vital Signs - 12hr 12/16/20 12/16/20 12/16/20 04:35 07:52 08:14 Temperature 98.5 F Pulse Rate 60 Pulse Rate [ 86 Bilateral Throughout] Respiratory 20 Rate Respiratory 18 Rate [Bilateral Throughout] Blood Pressure 120/57 O2 Sat by Pulse 97 97 Oximetry CBC and BMP: 12/13/20 05:06 12/16/20 07:21 ABG, PT/INR, D-dimer: PT/INR, D-dimer PT 14.5 Sec. (12.2-14.9) 12/13/20 05:06 INR 1.07 (0.87-1.13) 12/13/20 05:06 D-Dimer 454.72 ng/mlDDU (0-234) H 12/12/20 02:38 Abnormal lab findings: Abnormal Labs 12/12/20 12/12/20 12/12/20 00:42 00:42 02:38 RBC 3.24 L Hgb 8.2 L Hct 25.1 L MCV 78 L MCH 25 L RDW 19.2 H Lymph % (Auto) 12.8 L [place] % (Auto) 7.5 H Seg Neutrophils % 75.6 H D-Dimer 454.72 H Sodium Chloride 96.0 L Carbon Dioxide 37 H BUN 6 L Creatinine Glucose Calcium ALT Lactate Dehydrogenase C-Reactive Protein Albumin Coronavirus (PCR) 12/12/20 12/12/20 12/13/20 02:38 Unknown 05:06 RBC 3.35 L Hgb 8.0 L Hct 26.0 L MCV 78 L MCH 24 L RDW 19.0 H Lymph % (Auto) [place] % (Auto) 10.0 H Seg Neutrophils % D-Dimer Sodium Chloride Carbon Dioxide BUN Creatinine Glucose 125 H Calcium ALT Lactate Dehydrogenase 219 H C-Reactive Protein 1.50 H Albumin Coronavirus (PCR) Positive A 12/13/20 12/14/20 12/15/20 05:06 09:48 07:15 RBC Hgb Hct MCV MCH RDW Lymph % (Auto) [place] % (Auto) Seg Neutrophils % D-Dimer Sodium 136 L Chloride 92.3 L 93.4 L 96.4 L Carbon Dioxide 41 H* 37 H 38 H BUN Creatinine 0.5 L 0.5 L Glucose 123 H 114 H Calcium 8.1 L ALT 5 L < 5 L Lactate Dehydrogenase C-Reactive Protein Albumin Coronavirus (PCR) 12/16/20 07:21 RBC Hgb Hct MCV MCH RDW Lymph % (Auto) [place] % (Auto) Seg Neutrophils % D-Dimer Sodium Chloride Carbon Dioxide 35 H BUN Creatinine Glucose Calcium ALT 6 L Lactate Dehydrogenase C-Reactive Protein Albumin 3.8 L Coronavirus (PCR)
--- NOTE | 2020-12-16 13:27 | Progress Note ---
Assessment and Plan Cultures: COVID PCR: positive A/P: 25 yo F PMHx morbid obesity (BMI 94), chronic respiratory failure on O2, asthma, diastolic heart failure, PE #Acute on chronic respiratory failure: she is on chronic trach and O2 at home, unclear baseline at present. As she has minimally elevated inflammatory markers and atypical lung findings I'm unsure how much a role the COVID is playing into her current presentation. #COVID-19: no PNA on CXR and afebrile, however given her size and co-morbidities it is difficult to tell what exactly is driving her presentation. #Morbid obesity: with several associated co-morbidities Recs: -Continue dexamethasone. Ok with higher dosing considering her weight. -While unsure of role of COVID,complete 5 days of remdesivir -If she is improved and stable can discharge prior to completing course of remdesivir. -Monitor d-dimer as she has a history of PE as is unlikely to be able to fit into the CT scanner -Proning if able. Thank you for the consult, we will sign off. Please call with questions. Geovanna Matos MD [facility] ([facility]) O: [phone] F: [phone] Subjective Date of service: 12/16/20 Interval history: Afebrile, normal white count. No other acute changes. On T-piece. Objective - Exam Narrative Exam: Physical exam deferred to reduce risk of transmission of COVID-19. Please refer to primary team's note. - Constitutional Vitals: Vital Signs Temp Pulse Resp BP Pulse Ox 98.5 F 86 18 120/57 97 12/16/20 04:35 12/16/20 07:52 12/16/20 07:52 12/16/20 04:35 12/16/20 08:14 Temperature -Last 24 Hours Temperature 98.5 F Temperature 98.8 F Temperature 98.0 F - Labs CBC & Chem 7: 12/13/20 05:06 12/16/20 07:21 Labs: Abnormal lab results 12/16/20 Range/Units 07:21 Carbon Dioxide 35 H (22-30) mmol/L ALT 6 L (7-56) units/L Albumin 3.8 L (3.9-5) g/dL
[2020-12-16] MEDS ORDERED: IPRATROPIUM/ALBUTEROL SULFATE 3 ML AMPUL.NEB IH SCH (22:00)
[2020-12-16] MEDS: REMDESIVIR 100 MG in SODIUM CHLORIDE 0.9% 250ML 250 ML IV SCH (22:19)
[2020-12-16] MEDS: SODIUM CHLORIDE 0.9% 50 ML IVPB IV SCH (22:20)
--- NOTE | 2020-12-17 09:52 | Progress Note ---
Assessment and Plan 25 y/o female with acute on chronic respiratory failure, trached and morbidly, morbidly obese. 12/17/20: Steroids for 10 days. Agree with ID assessment and no objection to discharge from pulmonary standpoint. Could be done as early as today. 12/16/20: Continue steroids, total of 10 days. Continue Remdesivir. Hopeful discharge soon 12/14/20: Continue steroids at higher doses. Continue Remdesivir. hopeful discharge soon. 12/13/20: STarted patient on decadron 8 BID. Suggest ID consult to see if remdesivir and actemra are warranted. Need to find out how much O2 patient is on at home. Doubt patient can prone, but if so, would suggest this as tolerated. Very very guarded to poor prognosis given morbid obesity. However if her oxygen requirement does not increase in the next 24-48 hours, would suggest discharge to home pending on her arrangement and if she oxygen already set up there for use with her chronic trach which she likely does. 1. Follow up COVID 2. Weight loss (needs bariatric surgery) 3. Indefinite trach 4. Ok with nebs but if COVID positive will need puffer therapy and steroids. Subjective Date of service: 12/17/20 Interval history: Pulm status remains stable. Day 4 or 5 of remdesivir. Reviewed ID note from yesterday. Objective Vital Signs - 12hr 12/16/20 12/16/20 12/16/20 22:00 23:39 23:40 Temperature 98.7 F Pulse Rate 57 L 63 Pulse Rate [ Bilateral Throughout] Pulse Rate [ 57 L Right Brachial] Respiratory 22 22 Rate Respiratory Rate [Bilateral Throughout] Blood Pressure 119/59 Blood Pressure [Left] O2 Sat by Pulse 100 99 100 Oximetry 12/17/20 12/17/20 12/17/20 06:00 08:14 08:15 Temperature 98.8 F Pulse Rate 58 L Pulse Rate [ 58 L Bilateral Throughout] Pulse Rate [ Right Brachial] Respiratory 18 Rate Respiratory 18 Rate [Bilateral Throughout] Blood Pressure Blood Pressure 136/64 [Left] O2 Sat by Pulse 99 Oximetry CBC and BMP: 12/13/20 05:06 12/17/20 00:49 ABG, PT/INR, D-dimer: PT/INR, D-dimer PT 14.5 Sec. (12.2-14.9) 12/13/20 05:06 INR 1.07 (0.87-1.13) 12/13/20 05:06 D-Dimer 454.72 ng/mlDDU (0-234) H 12/12/20 02:38 Abnormal lab findings: Abnormal Labs 12/12/20 12/12/20 12/12/20 00:42 00:42 02:38 RBC 3.24 L Hgb 8.2 L Hct 25.1 L MCV 78 L MCH 25 L RDW 19.2 H Lymph % (Auto) 12.8 L [place] % (Auto) 7.5 H Seg Neutrophils % 75.6 H D-Dimer 454.72 H Sodium Chloride 96.0 L Carbon Dioxide 37 H BUN 6 L Creatinine Glucose Calcium ALT Lactate Dehydrogenase C-Reactive Protein Albumin Coronavirus (PCR) 12/12/20 12/12/20 12/13/20 02:38 Unknown 05:06 RBC 3.35 L Hgb 8.0 L Hct 26.0 L MCV 78 L MCH 24 L RDW 19.0 H Lymph % (Auto) [place] % (Auto) 10.0 H Seg Neutrophils % D-Dimer Sodium Chloride Carbon Dioxide BUN Creatinine Glucose 125 H Calcium ALT Lactate Dehydrogenase 219 H C-Reactive Protein 1.50 H Albumin Coronavirus (PCR) Positive A 12/13/20 12/14/20 12/15/20 05:06 09:48 07:15 RBC Hgb Hct MCV MCH RDW Lymph % (Auto) [place] % (Auto) Seg Neutrophils % D-Dimer Sodium 136 L Chloride 92.3 L 93.4 L 96.4 L Carbon Dioxide 41 H* 37 H 38 H BUN Creatinine 0.5 L 0.5 L Glucose 123 H 114 H Calcium 8.1 L ALT 5 L < 5 L Lactate Dehydrogenase C-Reactive Protein Albumin Coronavirus (PCR) 12/16/20 07:21 RBC Hgb Hct MCV MCH RDW Lymph % (Auto) [place] % (Auto) Seg Neutrophils % D-Dimer Sodium Chloride Carbon Dioxide 35 H BUN Creatinine Glucose Calcium ALT 6 L Lactate Dehydrogenase C-Reactive Protein Albumin 3.8 L Coronavirus (PCR)
[2020-12-17] MEDS: PANTOPRAZOLE 40 MG TAB PO SCH (10:54)
[2020-12-17] MEDS: DEXAMETHASONE 4 MG TAB PO SCH ×2 (10:54→22:24)
--- NOTE | 2020-12-17 11:53 | Progress Note ---
Assessment and Plan Assessment and plan: Assessment and Plan: 25-year-old -French female who is trach dependent who presents with acute respiratory failure in the context of Covid infection. - Patient Problems Acute and chronic respiratory failure Current Visit: Yes Status: Acute Plan to address problem: Possibly secondary to pulmonary edema versus underlying pneumonia. Patient is also trach dependent. Patient started on steroids Continue oxygen supplementation, patient seems to be at baseline Covid pneumonia Pulmonology and infectious disease consulted Patient started on steroids and remdesivir. Last dose should be tomorrow. Morbidly obese Current Visit: Yes Status: Acute Plan to address problem: Request dietary consult. Tracheostomy dependence Current Visit: Yes Status: Acute Plan to address problem: Continue pulmonology recommendations, patient seems to be at baseline no acute respiratory distress DVT prophylaxis Current Visit: Yes Status: Acute Plan to address problem: Patient currently on anticoagulation with Lovenox. Full code status Current Visit: Yes Status: Acute Plan to address problem: Patient is full code. Disposition: Patient to continue remdesivir treatment and steroids. History Interval history: 12/13/2020: Patient seen and examined, states that her breathing is improved and is back at baseline. Informed patient that she does have Covid. 12/14/2020: Patient seen and examined, was complaining of left arm pain because of IV. There was a question if she received the entire dose of remdesivir last night. Overall the patient is doing well, breathing is at baseline. No nausea or vomiting tolerating diet. 12/15/2020: Patient examined, left arm is improved, no nausea vomiting breathing is at baseline. 12/16/2020: Patient states that she has no respiratory distress. No nausea or vomiting. 12/17/2020: Patient lying in bed, no respiratory distress, tolerating diet. Hospitalist Physical - Physical exam Narrative exam: General appearance: Morbid obesity, no acute distress, well-nourished EENT: PERRL, EOM intact, hearing intact, clear oral mucosa Neck: Present: supple, normal ROM tracheostomy present Respiratory: Tracheostomy present, 6 L of oxygen, no respiratory distress Cardiovascular: Regular rate/rhythm, Normal S1 & S2. No gallop, rub Abdominal: Large pannus, soft, no tenderness, non-distended, normal bowel sounds Integumentary: Present: clear, warm, dry no wounds, no erythema noted, no swelling in left arm Psychiatric: appropriate mood/affect, intact judgment & insight Neurologic: CNII-XII intact, moves all extremities, no sensory or motor abnormalities - Constitutional Vitals: Temp Pulse Resp BP Pulse Ox 98.8 F 58 L 18 136/64 99 12/17/20 06:00 12/17/20 08:14 12/17/20 08:14 12/17/20 06:00 12/17/20 08:15 General appearance: Present: mild distress, obese HEART Score - HEART Score EKG: Non-specific Age: < 45 Risk factors: 1-2 risk factors Troponin: Troponin T < 0.010 ng/mL (0.00-0.029) 12/12/20 02:40 Troponin: < normal limit Results - Labs CBC & Chem 7: 12/13/20 05:06 12/17/20 00:49 Labs: Laboratory Last Values WBC 6.6 K/mm3 (4.5-11.0) 12/13/20 05:06 RBC 3.35 M/mm3 (3.65-5.03) L 12/13/20 05:06 Hgb 8.0 gm/dl (10.1-14.3) L 12/13/20 05:06 Hct 26.0 % (30.3-42.9) L 12/13/20 05:06 MCV 78 fl (79-97) L 12/13/20 05:06 MCH 24 pg (28-32) L 12/13/20 05:06 MCHC 31 % (30-34) 12/13/20 05:06 RDW 19.0 % (13.2-15.2) H 12/13/20 05:06 Plt Count 335 K/mm3 (140-440) 12/13/20 05:06 Lymph % (Auto) 24.6 % (13.4-35.0) 12/13/20 05:06 [place] % (Auto) 10.0 % (0.0-7.3) H 12/13/20 05:06 Eos % (Auto) 2.6 % (0.0-4.3) 12/13/20 05:06 Baso % (Auto) 0.4 % (0.0-1.8) 12/13/20 05:06 Lymph # (Auto) 1.6 K/mm3 (1.2-5.4) 12/13/20 05:06 [place] # (Auto) 0.7 K/mm3 (0.0-0.8) 12/13/20 05:06 Eos # (Auto) 0.2 K/mm3 (0.0-0.4) 12/13/20 05:06 Baso # (Auto) 0.0 K/mm3 (0.0-0.1) 12/13/20 05:06 Seg Neutrophils % 62.4 % (40.0-70.0) 12/13/20 05:06 Seg Neutrophils # 4.1 K/mm3 (1.8-7.7) 12/13/20 05:06 PT 14.5 Sec. (12.2-14.9) 12/13/20 05:06 INR 1.07 (0.87-1.13) 12/13/20 05:06 D-Dimer 454.72 ng/mlDDU (0-234) H 12/12/20 02:38 Sodium 140 mmol/L (137-145) 12/16/20 07:21 Potassium 4.7 mmol/L (3.6-5.0) 12/17/20 00:49 Chloride 98.1 mmol/L (98-107) 12/16/20 07:21 Carbon Dioxide 35 mmol/L (22-30) H 12/16/20 07:21 Anion Gap 12 mmol/L 12/16/20 07:21 BUN 16 mg/dL (7-17) 12/16/20 07:21 Creatinine 0.6 mg/dL (0.6-1.2) 12/16/20 07:21 Estimated GFR > 60 ml/min 12/16/20 07:21 BUN/Creatinine Ratio 27 % 12/16/20 07:21 Glucose 86 mg/dL (65-100) 12/16/20 07:21 Calcium 8.6 mg/dL (8.4-10.2) 12/16/20 07:21 Magnesium 2.10 mg/dL (1.7-2.3) 12/17/20 00:49 Ferritin 50.2 ng/mL (10.0-200.0) 12/12/20 02:38 Total Bilirubin 0.20 mg/dL (0.1-1.2) 12/16/20 07:21 AST 5 units/L (5-40) 12/16/20 07:21 ALT 6 units/L (7-56) L 12/16/20 07:21 Alkaline Phosphatase 56 units/L (35-129) 12/16/20 07:21 Lactate Dehydrogenase 219 units/L (91-180) H 12/12/20 02:38 Troponin T < 0.010 ng/mL (0.00-0.029) 12/12/20 02:40 C-Reactive Protein 1.50 mg/dL (0.00-1.30) H 12/12/20 02:38 NT-Pro-B Natriuret Pep 412.9 pg/mL (0-450) 12/12/20 01:54 Total Protein 6.7 g/dL (6.3-8.2) 12/16/20 07:21 Albumin 3.8 g/dL (3.9-5) L 12/16/20 07:21 Albumin/Globulin Ratio 1.3 % 12/16/20 07:21 Procalcitonin < 0.05 ng/mL (<0.15) 12/12/20 02:38 Coronavirus (PCR) Positive (Negative) A 12/12/20 Unknown G[place]vara/IV: Voiding Method Toilet Active Medications - Current Medications Current Medications: Generic Name Dose Route Start Last Admin Trade Name Freq PRN Reason Stop Dose Admin Acetaminophen 650 mg 12/12/20 04:13 Acetaminophen 325 Mg Tab PO Q6H PRN Pain MILD(1-3)/Fever >100.5/SIERRA Albuterol/Ipratropium 1 ampul 12/17/20 08:00 Ipratropium/Albuterol Sulfate 3 Ml Ampul.Neb IH BIDRT RADHA Benzonatate 100 mg 12/12/20 04:22 Benzonatate 100 Mg Cap PO TID PRN Cough Dexamethasone 8 mg 12/13/20 10:00 12/17/20 10:54 Dexamethasone 4 Mg Tab PO 12/22/20 22:01 8 mg Q12HR RADHA Administration Diphenhydramine HCl 50 mg 12/12/20 04:22 Diphenhydramine 25 Mg Cap PO Q6H PRN Itching REMDESIVIR 100 mg/ Sodium 250 mls @ 500 mls/hr 12/15/20 21:00 12/16/20 22:19 Chloride IV 06/20/21 21:29 500 mls/hr Q24HR@2100 RDAHA Administration Magnesium Hydroxide 30 ml 12/12/20 04:13 Magnesium Hydroxide (Mom) Oral Liqd Udc PO Q4H PRN Constipation Ondansetron HCl 4 mg 12/12/20 04:13 Ondansetron 4 Mg/2 Ml Inj IV Q8H PRN Nausea And Vomiting Pantoprazole Sodium 40 mg 12/12/20 10:00 12/17/20 10:54 Pantoprazole 40 Mg Tab PO 40 mg QDAY RADHA Administration Sodium Chloride 10 ml 12/12/20 10:00 12/17/20 10:55 Sodium Chloride 0.9% 10 Ml Flush Syringe IV 10 ml BID RADHA Administration Sodium Chloride 10 ml 12/12/20 04:13 Sodium Chloride 0.9% 10 Ml Flush Syringe IV PRN PRN LINE FLUSH Sodium Chloride 50 ml 12/14/20 14:00 12/16/20 22:20 Sodium Chloride 0.9% 50 Ml Ivpb IV 12/18/20 21:01 50 ml Q24HR@2100 RADHA Administration Nutrition/Malnutrition Assess - Dietary Evaluation Nutrition/Malnutrition Findings: Nutrition Notes Start: 12/12/20 12:19 Freq: Status: Active Protocol: Document 12/13/20 12:20 (Rec: 12/13/20 12:23 [email or web address]) Nutrition Notes Initial or Follow up Brief Note Current Diagnosis COPD,Hypertension,Heart Failure,Respiratory Failure Other Pertinent Diagnosis COVID(+) Current Diet Cardiac Subjective/Other Information FU for diet education. Pt reports likely to get bariatric surgery at [facility]. Pt is eating 75-100% of meals. Pt asked for nutritional handout but denied diet education. Left handout in chart. Nutrition Intervention Teaching Recipient Patient Learning Readiness Good Teaching Methods Handout Response to Teaching Verbalize understanding Education Handouts Provided General Healthful [place] Barriers to Learning No Barriers RD phone number provided Yes Patient aware of follow up options Yes Revisit per MD consult or patient Sign Off request:
[2020-12-17] MEDS: IPRATROPIUM/ALBUTEROL SULFATE 3 ML AMPUL.NEB IH SCH ×2 (14:08→20:35)
[2020-12-17] MEDS: REMDESIVIR 100 MG in SODIUM CHLORIDE 0.9% 250ML 250 ML IV SCH (22:24)
[2020-12-17] MEDS: SODIUM CHLORIDE 0.9% 50 ML IVPB IV SCH (22:25)
[2020-12-18] MEDS: IPRATROPIUM/ALBUTEROL SULFATE 3 ML AMPUL.NEB IH SCH (07:54)
[2020-12-18] MEDS: DEXAMETHASONE 4 MG TAB PO SCH (09:15)
[2020-12-18] MEDS: PANTOPRAZOLE 40 MG TAB PO SCH (09:15)
--- NOTE | 2020-12-18 09:35 | Discharge Summary ---
Providers - Providers Date of Admission: 12/12/20 16:40 Date of discharge: 12/18/20 Attending physician: RICH BLANCO MD 12/12/20 04:18 Consult to Dietitian/Nutrition [CONS] Routine Physician Instructions: Reason For Exam: Reason for Consult: Diet education Consult to Physician [CONS] Routine Comment: Consulting Provider: TAHIR LAWSON Physician Instructions: Reason For Exam: RESPIRATORY FAILURE. R/O PNEUMONIA 12/12/20 12:28 Physical Therapy Evaluation and Treat [CONS] Routine Comment: Debility Reason For Exam: Eval & Treat 12/13/20 09:14 Consult to Physician [CONS] Routine Comment: Consulting Provider: SANTOS SEVILLA Physician Instructions: Reason For Exam: COVID+, recs for treatment Hospitalization Reason for admission: Acute on chronic respiratory failure Condition: Good Hospital course: Assessment and Plan: 25-year-old -[place] female who is trach dependent who presents with acute respiratory failure in the context of Covid infection. - Patient Problems Acute and chronic respiratory failure Current Visit: Yes Status: Acute Plan to address problem: Possibly secondary to pulmonary edema versus underlying pneumonia. Patient is also trach dependent. Patient started on steroids Continue oxygen supplementation, patient seems to be at baseline Covid pneumonia Pulmonology and infectious disease consulted Patient started on steroids and remdesivir. Morbidly obese Current Visit: Yes Status: Acute Plan to address problem: Request dietary consult. Tracheostomy dependence Current Visit: Yes Status: Acute Plan to address problem: Continue pulmonology recommendations, patient seems to be at baseline no acute respiratory distress DVT prophylaxis Current Visit: Yes Status: Acute Plan to address problem: Patient currently on anticoagulation with Lovenox. Full code status Current Visit: Yes Status: Acute Plan to address problem: Patient is full code. History Interval history: 12/13/2020: Patient seen and examined, states that her breathing is improved and is back at baseline. Informed patient that she does have Covid. 12/14/2020: Patient seen and examined, was complaining of left arm pain because of IV. There was a question if she received the entire dose of remdesivir last night. Overall the patient is doing well, breathing is at baseline. No nausea or vomiting tolerating diet. 12/15/2020: Patient examined, left arm is improved, no nausea vomiting breathing is at baseline. 12/16/2020: Patient states that she has no respiratory distress. No nausea or vomiting. 12/17/2020: Patient lying in bed, no respiratory distress, tolerating diet. 12/18/2020: Patient is doing well, patient can be discharged home per pulmonology and ID recommendations, at baseline breathing. Disposition: DC-01 TO HOME OR SELFCARE Final Discharge Diagnosis (Prints w/discharge instructions): Acute on chronic respiratory failure. Covid pneumonia. Morbid obesity. Tracheostomy dependence Time spent for discharge: 35 minutes Core Measure Documentation - Palliative Care Palliative Care/ Comfort Measures: Not Applicable - Core Measures Any of the following diagnoses?: none Exam - Physical Exam Narrative exam: General appearance: Morbid obesity, no acute distress, well-nourished EENT: PERRL, EOM intact, hearing intact, clear oral mucosa Neck: Present: supple, normal ROM tracheostomy present Respiratory: Tracheostomy present, 6 L of oxygen, no respiratory distress Cardiovascular: Regular rate/rhythm, Normal S1 & S2. No gallop, rub Abdominal: Large pannus, soft, no tenderness, non-distended, normal bowel sounds Integumentary: Present: clear, warm, dry no wounds, no erythema noted, no swelling in left arm Psychiatric: appropriate mood/affect, intact judgment & insight Neurologic: CNII-XII intact, moves all extremities, no sensory or motor abnormalities - Constitutional Vitals: Temp Pulse Resp BP Pulse Ox 98.4 F 82 18 130/60 100 12/17/20 23:20 12/18/20 07:54 12/18/20 07:54 12/17/20 23:20 12/18/20 07:54 Plan Activity: no restrictions Diet: regular Follow up with: AUBREE HUNTER [Other] - 7 Days SHY ANDUJAR MD [Staff Physician] - 7 Days CHARLOTTE IGLESIAS MD [Staff Physician] - 7 Days Prescriptions: methylPREDNISolone [Medrol 4MG DOSEPAK (21 tabs)] 4 mg PO DAILY #1 tab.ds.pk
--- NOTE | 2020-12-18 11:38 | Progress Note ---
Assessment and Plan 25 y/o female with acute on chronic respiratory failure, trached and morbidly, morbidly obese. 12/18/20: No objection to discharge today. 12/17/20: Steroids for 10 days. Agree with ID assessment and no objection to discharge from pulmonary standpoint. Could be done as early as today. 12/16/20: Continue steroids, total of 10 days. Continue Remdesivir. Hopeful discharge soon 12/14/20: Continue steroids at higher doses. Continue Remdesivir. hopeful discharge soon. 12/13/20: STarted patient on decadron 8 BID. Suggest ID consult to see if remdesivir and actemra are warranted. Need to find out how much O2 patient is on at home. Doubt patient can prone, but if so, would suggest this as tolerated. Very very guarded to poor prognosis given morbid obesity. However if her oxygen requirement does not increase in the next 24-48 hours, would suggest discharge to home pending on her arrangement and if she oxygen already set up there for use with her chronic trach which she likely does. 1. Follow up COVID 2. Weight loss (needs bariatric surgery) 3. Indefinite trach 4. Ok with nebs but if COVID positive will need puffer therapy and steroids. Subjective Date of service: 12/18/20 Interval history: No acute events. Being discharge today. Objective Vital Signs - 12hr 12/17/20 12/18/20 23:46 07:54 Pulse Rate [ 82 Bilateral Throughout] Respiratory 18 Rate Respiratory 18 Rate [Bilateral Throughout] O2 Sat by Pulse 100 Oximetry O2 Sat by Pulse 100 Oximetry [ Assessment] CBC and BMP: 12/13/20 05:06 12/17/20 00:49 ABG, PT/INR, D-dimer: PT/INR, D-dimer PT 14.5 Sec. (12.2-14.9) 12/13/20 05:06 INR 1.07 (0.87-1.13) 12/13/20 05:06 D-Dimer 454.72 ng/mlDDU (0-234) H 12/12/20 02:38 Abnormal lab findings: Abnormal Labs 12/12/20 12/12/20 12/12/20 00:42 00:42 02:38 RBC 3.24 L Hgb 8.2 L Hct 25.1 L MCV 78 L MCH 25 L RDW 19.2 H Lymph % (Auto) 12.8 L [place] % (Auto) 7.5 H Seg Neutrophils % 75.6 H D-Dimer 454.72 H Sodium Chloride 96.0 L Carbon Dioxide 37 H BUN 6 L Creatinine Glucose Calcium ALT Lactate Dehydrogenase C-Reactive Protein Albumin Coronavirus (PCR) 12/12/20 12/12/20 12/13/20 02:38 Unknown 05:06 RBC 3.35 L Hgb 8.0 L Hct 26.0 L MCV 78 L MCH 24 L RDW 19.0 H Lymph % (Auto) [place] % (Auto) 10.0 H Seg Neutrophils % D-Dimer Sodium Chloride Carbon Dioxide BUN Creatinine Glucose 125 H Calcium ALT Lactate Dehydrogenase 219 H C-Reactive Protein 1.50 H Albumin Coronavirus (PCR) Positive A 12/13/20 12/14/20 12/15/20 05:06 09:48 07:15 RBC Hgb Hct MCV MCH RDW Lymph % (Auto) [place] % (Auto) Seg Neutrophils % D-Dimer Sodium 136 L Chloride 92.3 L 93.4 L 96.4 L Carbon Dioxide 41 H* 37 H 38 H BUN Creatinine 0.5 L 0.5 L Glucose 123 H 114 H Calcium 8.1 L ALT 5 L < 5 L Lactate Dehydrogenase C-Reactive Protein Albumin Coronavirus (PCR) 12/16/20 07:21 RBC Hgb Hct MCV MCH RDW Lymph % (Auto) [place] % (Auto) Seg Neutrophils % D-Dimer Sodium Chloride Carbon Dioxide 35 H BUN Creatinine Glucose Calcium ALT 6 L Lactate Dehydrogenase C-Reactive Protein Albumin 3.8 L Coronavirus (PCR)
[2020-12-18 16:03] VITALS: BP 150/76
== END 2020-12-18 15:00 | disposition home health service (06) | DRG 177 ==
LOC: ED 23:54 → 3A 12-12 02:28 → OBSVTOIN 12-12 16:40
PROVIDERS: ADMIT Internal Medicine Geriatric Medicine; ATTEND Family Medicine
PROC: XW033E5 Introduction of Remdesivir Anti-infective into Peripheral Vein, Percutaneous Approach, New Technology Group 5 (ICD-10-PCS; principal; 2020-12-14)
DX: U07.1 COVID-19 (principal); J96.20 Acute and chronic respiratory failure, unspecified whether with hypoxia or hypercapnia; I50.31 Acute diastolic (congestive) heart failure; J12.82 Pneumonia due to coronavirus disease 2019; E66.2 Morbid (severe) obesity with alveolar hypoventilation; J45.901 Unspecified asthma with (acute) exacerbation; I11.0 Hypertensive heart disease with heart failure; Z93.0 Tracheostomy status; Z99.81 Dependence on supplemental oxygen; Z79.899 Other long term (current) drug therapy
CPT/HCPCS: 36415; 71045; 80048; 80053; 82728; 82947; 83615; 83735; 83880; 84132; 84145; 84484; 85025; 85379; 85610; 86140; 93005; 94640; 94644; 96365; G0378; J0456; J0696; J1650; J1940; J7050; J7512; J8540; U0003